=== PATIENT | female | born 1940 | race Caucasian/White ===

== ENCOUNTER 2017-03-16 13:54 | Inpatient (IN) | payer OTHER, MEDICARE ==
[2017-03-16 15:37] LABS: #Lymphocytes 0.5 thou/uL (1.20-3.40); #Monocytes 0.6 thou/uL (0.11-0.59); #Neutrophils 6.1 thou/uL (1.40-6.50); %Basophils 0.3 % (0.0-1.0); %Eosinophils 0.6 % (0.0-10.0); %Lymphocytes 7.4 % (21.0-51.0); %Monocytes 7.6 % (0.0-10.0); Hematocrit 36.2 % (36.0-47.0); Mean Platelet Volume 6.9 fL (7.4-10.4); Red Blood Cell (RBC) Count 3.57 mill/uL (4.20-5.40); White Blood Cell (WBC) Count 7.3 thou/uL (4.8-10.8)
[2017-03-16 15:44] LABS: PTT 25.1 SEC (22.9-36.1); Prothrombin Time 14.5 SEC (12.0-14.7)
[2017-03-16 15:53] LABS: Lactic Acid - Sepsis 1.1 mmol/L (0.5-2.2)
--- NOTE | 2017-03-16 15:54 | CT ---
HEAD CT WITHOUT CONTRAST 03/16/17 COMPARISON: None. HISTORY: Weakness, nausea, and vomiting. TECHNIQUE: Serial axial CT imaging is obtained at 5 mm intervals from vertex through skull base without contrast . FINDINGS: The imaged paranasal sinuses and mastoid air cells are well aerated. There is no displaced calvarial fracture. No intracranial hemorrhage, midline shift mass effect or ve ntricular enlargement. IMPRESSION: No acute findings. POS: [facility]
[2017-03-16 15:58] LABS: ALT (SGPT) 33 U/L (8-55); AST (SGOT) 34 U/L (5-34); Alkaline Phosphatase 49 U/L (40-150); Anion Gap 22 mmol/L (10-20); Bilirubin, Total 0.6 mg/dL (0.2-1.2); CK (CPK) 442 U/L (29-168); Calc. Creatinine Clearance 0 mL/min (70-130); Calcium 8.4 mg/dL (7.8-10.44); Carbon Dioxide 25 mmol/L (23-31); Chloride 95 mmol/L (98-107); Estimated GFR-MDRD 9; Globulin 3.5 g/dL (2.4-3.5); Magnesium 2.1 mg/dL (1.6-2.6); Phosphorus 5.6 mg/dL (2.3-4.7); Protein, Total 6.8 g/dL (6.0-8.3)
[2017-03-16 16:03] LABS: Troponin I 0.145 ng/mL (< 0.028)
[2017-03-16 16:10] LABS: BUN (Urea Nitrogen) 147 mg/dL (9.8-20.1)
[2017-03-16] MEDS ORDERED: Potassium Chloride 20 MEQ in Premix Bag 1 BAG IVPB SCH (16:30)
[2017-03-16] MEDS ORDERED: Potassium Chloride 20 MEQ TAB ONE (16:41)
[2017-03-16] MEDS ORDERED: Potassium Chloride 20 MEQ/100 ML PREMIX BAG ONE ×2 (18:19→18:33)
[2017-03-16 19:00] LABS: Troponin I 0.158 ng/mL (< 0.028)
[2017-03-16] MEDS ORDERED: Diabetic Tussin 200 MG/10 ML UDCUP PO PRN (19:35)
[2017-03-16] MEDS ORDERED: Benzonatate 100 MG CAP PO PRN (19:35)
[2017-03-16] MEDS ORDERED: Bisacodyl 5 MG TAB PO PRN (19:35)
[2017-03-16] MEDS ORDERED: Nitroglycerin 0.4 MG TAB (25 Tab Bottle) SL PRN (19:35)
[2017-03-16] MEDS ORDERED: cloNIDine 0.1 MG TAB PO PRN (19:35)
[2017-03-16] MEDS ORDERED: Mag-Al 1200 mg/1200 mg/30 ML UDCUP PO PRN (19:35)
[2017-03-16] MEDS ORDERED: Senokot 8.6 MG TAB PO PRN (19:35)
[2017-03-16] MEDS ORDERED: Lorazepam 1 MG TAB PO PRN (19:35)
[2017-03-16] MEDS ORDERED: HYDROcodone/Acetaminophen 5/325 mg Tablet PO PRN (19:35)
[2017-03-16] MEDS ORDERED: Acetaminophen 325 MG TAB PO PRN (19:35)
[2017-03-16] MEDS ORDERED: Loratadine 10 MG TAB PO PRN (19:35)
[2017-03-16] MEDS ORDERED: hydrALAZINE 20 MG/ML VIAL SLOW IVP PRN (19:35)
[2017-03-16] MEDS ORDERED: Ondansetron HCl/PF 4 MG/2 ML Vial IVP PRN (19:35)
[2017-03-16] MEDS ORDERED: Calcium Carbonate 500 MG ChewTAB PO PRN (19:35)
[2017-03-16] MEDS ORDERED: traMADol HCl 50 MG TAB PO PRN (19:35)
[2017-03-16 21:07] LABS: Bilirubin Negative (Negative); Blood, Urine Small (Negative); Glucose, Urine (Dipstick) Negative (Negative); Ketone, Urine Negative (Negative); Nitrite Negative (Negative); Protein, Urine (Dipstick) Negative (Neg-Trace); Urobilinogen 0.2 mg/dL (0.2-1.0)
[2017-03-16 21:09] LABS: Bacteria/HPF 4+ HPF (None Seen); Hyaline Casts/LPF 0-3 HYALINE CAST LPF (0-3 Hyaline); Squamous Epithelial None Seen HPF (0-3)
[2017-03-16] MEDS: 1/2 NS w/KCL 20 mEq 1,000 ML IV SCH (21:54)
[2017-03-16] MEDS: Metoprolol Tartrate 25 MG TAB PO SCH (21:59)
--- NOTE | 2017-03-16 22:07 | CT ---
CT ABDOMEN AND PELVIS WITHOUT IV CONTRAST: 03/16/17 Multiple axial tomograms obtained through the abdomen and pelvis without IV enhancement. HISTORY: Renal failure. Transferred from [facility] for weakness, nausea and vomiting. Lung bases are clear. There are calcified granuloma in both lung bases. The liver, spleen, and pancreas appear unremarkable. There is a small 1 cm low density focus in the r ight lobe of the liver probably representing a tiny hepatic cyst. The gallbladder is mildly distended and there is some heterogeneity within the gallbladder. Cholesterol gallstones cannot be excluded by CT and recommend consideration for gallbladder ultrasound. No biliary duct dilatation identified. There is mild left adrenal hyperplasia. There is a 2.8 cm cystic lesion arising from the inferior pole left kidney. No hydronephrosis. The ur eters are normal caliber. Small bowel loops appear normal caliber. Diverticulosis of the left colon and sigmoid. The urinary bl adder unremarkable. The uterus and adnexa unremarkable. Aorta normal caliber with atherosclerotic elva cification. There is an anterior abdominal wall hernia at the umbilicus with mesenteric fat herniated into the rodriguez bcutaneous tissues. Hernia sac measures approximately 4.5 cm width. IMPRESSION: 1. Mild distention of the gallbladder with some heterogeneity of the neck of the gallbladder. Co nsider gallbladder ultrasound. 2. Cystic lesion from the inferior pole of the left kidney. 3. Anterior abdominal wall hernia at the umbilicus. 4. Diverticulosis. 5. No evidence of acute process. 6. Evidence of small hepatic cyst. POS: [facility]
[2017-03-16 22:27] VITALS: BMI 42.5
--- NOTE | 2017-03-16 22:27 | ULT ---
RENAL ULTRASOUND 03/16/17 CLINICAL HISTORY: Renal failure. FINDINGS: Symmetric renal lengths are seen bilaterally between 10 and 11 cm. There is no overt hydronephrosis. There is an approximately 2.5 cm cyst of the left kidney. Punctate area of increased echogenicity in the right kidney is present which may relate to nephrolithiasis versus vascular calcification. Urinar y bladder is grossly unremarkable. IMPRESSION: 1. No overt hydronephrosis. 2. Left renal cyst. 3. Punctate focus of increased echogenicity of the right kidney as above. POS: [facility]
[2017-03-16 22:39] LABS: Troponin I 0.142 ng/mL (< 0.028)
[2017-03-16] MEDS ORDERED: Potassium Chloride 40 MEQ in Sodium Chloride 0.9% 500 ML IVPB SCH (23:59)
--- NOTE | 2017-03-17 01:19 | HP ---
DATE OF ADMISSION: 03/16/2017 PRIMARY CARE PHYSICIAN: Tang Corley D.O. PRIMARY STRATEGY LEAD: Nick Trevino M.D. CHIEF COMPLAINT: Not feeling well, nausea and some loose stools. HISTORY OF PRESENT ILLNESS: Ms. Alvarado is a very pleasant 76-year-old female with past medical histo ry of chronic atrial fibrillation on chronic anticoagulation, Crohn's disease and hypertension who pr esented to the emergency room in [place] with the above-mentioned complaints. History is mainly obt ained by the patient herself and supplemented by her daughter present in the room. Electronic medica l records have been reviewed. According to Ms. Alvarado, she presented to [place] [facility] for not feeling well. Her daughter reports that her symptoms have been ongoing for about a week and a half. She has been feeling nause ous with poor oral intake. She denies any abdominal pain or gross vomiting, but has had some loose s tools. She reports discussing it with her primary care physician and was told that she has some stom ach bug. She is currently having some improvement in her diarrheal symptoms, but continues to feel w eak and presented to the ER today. In the emergency room upon presentation, she was found to be hypotensive with blood pressure of 83/41 and tachycardic with heart rate of 111. She has gross abnormalities on her blood work including acu te kidney injury with creatinine of 4.88 with BUN of 147 with estimated GFR of 9. Her baseline creat inine up until last year was within normal limits. Her potassium was found to be down at 2.3 and her troponin was elevated at 0.145 with CK-MB of 10.1. She has 84% neutrophils on her CBC. EKG showed atrial fibrillation with RVR with some ST depression in lead II, lead III, and AVF. Chest x-ray was unremarkable. She received potassium chloride along with aspirin and normal saline and was transferr ed to our facility for hypokalemia, hypotension, acute non-ST elevation RI and acute renal failure. In the emergency room here she has received more potassium IV and is now being admitted for acute mahi al insufficiency. The patient denies any recent illnesses other than "stomach bug." She denies any chest pain, shortne ss of breath. She denies any sore throat, rhinorrhea, or headache. She denies urinary frequency, he sitancy, or dysuria. She denies any hematochezia or melena. PAST MEDICAL HISTORY: 1. Crohn's disease. 2. Chronic atrial fibrillation. 3. Hypothyroidism. 4. Hypertension. 5. Chronic anticoagulation. PAST SURGICAL HISTORY: Include, 1. Back nerve ablation. 2. Knee surgery on the right. 3. Cataract surgery. 4. Skin cancer removal back of the right calf. SOCIAL HISTORY: She lives alone with her dog Austyn. No history of drug, tobacco or alcohol abuse. PSYCHIATRIC HISTORY: No anxiety, no depression. FAMILY HISTORY: Significant for she denies any premature coronary artery disease or stroke running i n her family. ALLERGIES: No known medication allergies. CURRENT MEDICATIONS: Lisinopril 40 mg daily, torsemide 200 mg daily, azathioprine 50 mg 3 tablets da roger, tizanidine 2 mg 1 tablet every 12 hours as needed, potassium chloride 10 mEq 1 to 2 times a day, [place] 4 times a day as needed, levothyroxine 50 mcg daily, Xarelto 20 mg daily, metoprolol tartrate 25 mg 2 tablets once a day, duloxetine 60 mg daily, oxybutynin 10 mg daily, metolazone 10 mg 3 times a week, multivitamin unknown dose, vitamin C 500 mg daily, glucosamine 1500 mg daily, Vitamin D3 1000 units daily, vitamin E 1000 units daily, and Vision Formula daily. REVIEW OF SYSTEMS: The following complete review of systems was negative, unless otherwise mentioned in the HPI or below: Constitutional: Weight loss or gain, ability to conduct usual activities. Skin: Rash, itching. Eyes: Double vision, pain. ENT/Mouth: Nose bleeding, neck stiffness, pain, tenderness. Cardiovascular: Palpitations, dyspnea on exertion, orthopnea. Respiratory: Shortness of breath, wheezing, cough, hemoptysis, fever or night sweats. Gastrointestinal: Poor appetite, abdominal pain, heartburn, nausea, vomiting, constipation, or diarr hea. Genitourinary: Urgency, frequency, dysuria, nocturia. Musculoskeletal: Pain, swelling. Neurologic/Psychiatric: Anxiety, depression. Allergy/Immunologic: Skin rash, bleeding tendency. It is negative except for those mentioned in the history and physical. PHYSICAL EXAMINATION: VITAL SIGNS: Upon presentation to [facility] ER include blood pressure 110/37, pulse of 89, respir ations 16, saturating 100% on room air, temperature 97.7. GENERAL: She appears age appropriate and in no acute distress. She does appear somewhat tired, but is awake, alert, and oriented. HEENT: Mucous membrane is dry. No oropharyngeal exudate or erythema. Head is normocephalic, atraum atic. Pupils equal, reactive to light and accommodation. Extraocular movements intact. NECK: Supple without any lymphadenopathy, JVD or bruit. CHEST: Clear to auscultation without any wheezing, rales or rhonchi. CARDIOVASCULAR: Rate and rhythm is regular without any murmur, rubs or gallops. ABDOMEN: Soft, nontender, and nondistended. No CVA tenderness. No guarding, rebound or rigidity. EXTREMITIES: Show pitting edema bilaterally with chronic venostasis changes in both lower extremitie s. PSYCHIATRIC: Normal affect. The patient does appear somewhat forgetful. NEUROLOGIC: Nonfocal. SKIN: Free of any rashes or bruises, feel warm and dry to touch. LABORATORY DATA: Laboratory examination has done in the [place] [facility] include WBC 8.4, hem oglobin 13.3, neutrophils 89%, platelet count of 170. Serum chemistries: Potassium 2.2 upon present ation, sodium 140, chloride 89, bicarbonate 25, BUN 157, creatinine 5.87 with repeat creatinine of 4. 88. Lactic acid 1.1, phosphorus 5.6, magnesium 2.1. Liver enzymes within normal limits. Creatinine kinase 442, CK-MB 10.1 with troponin of 0.145. BNP is 218. CT scan of the brain was done in the ER and per my review does not show any hemorrhage, mass effect. Chest x-ray by my review has no eviden ce to suggest pleural effusion, pulmonary edema or infiltrates. A 12 lead EKG by my review shows atr ial fibrillation with controlled ventricular response at 80 with frequent PVCs. IMPRESSION AND PLAN: 1. Acute kidney insufficiency. This seems to be in the setting of developing chronic kidney insuffi ciency. The patient seems to have developed some chronic kidney disease as of December of this year . Nevertheless, it can be either due to dehydration or acute tubular necrosis in the setting of use of LUCIE inhibitor, diuretics and recent diarrheal illness. The patient will be resuscitated with IV f luids with potassium. We will continue to monitor her kidney function and electrolytes closely. We will consult Nephrology for further evaluation. Also check a urinalysis to assess for proteinuria, a nd any evidence of urinary tract infection. We will hold all the nephrotoxic medications include the lisinopril and diuretics for now. We will dose adjust her Imuran and Xarelto for now. 2. Hypotension/hypovolemic shock. This is likely secondary to dehydration due to ongoing diarrhea a nd poor p.o. intake due to nausea. Her blood pressure is much improved with IV fluid resuscitation. Sepsis is not suspected at this point. Most likely this is hypovolemic shock. We will continue to treat her with IV fluids and hold her diuretics. We will continue the beta hilary for her atrial fi brillation with parameters to hold for systolic blood pressure less than 120. 3. Atrial fibrillation now with rapid ventricular response. Unfortunately, this is likely secondary to dehydration. We will resume her beta hilary and Xarelto at this point with close monitoring of her blood pressure. If her blood pressure cannot sustain beta hilary or calcium channel hilary, sh e might need to be either started on digoxin or amiodarone. We will consult Cardiology for this reas on as well as possible non-ST elevation myocardial infarction and obtain a transthoracic echocardiogr am. The patient is asymptomatic with regards to her fast heart rate at this time. 4. Non-ST elevation myocardial infarction, this is most likely the demand ischemia from severe dehyd ration and septic shock. We will continue her home medication of Xarelto and beta hilary and obtain a transthoracic echocardiogram and Cardiology consultation. Continue to trend serial cardiac enzyme s. The patient has received aspirin in the [place] [facility] and we will hold off on anymore a spirin until Cardiology has seen her in the light of acute renal insufficiency. 5. Severe hypokalemia. This is secondary to poor p.o. intake and ongoing use of diuretics. The nely ielashell has received a total of 80 mEq of potassium in the ER. We will check a stat potassium level and continue to add potassium and IV fluids. It will be monitored closely and replaced as needed. 6. Elevated BNP. It is unclear significance, likely secondary to renal failure. The patient has no history of congestive heart failure neither any symptoms at this time. We will be judicious with th e use of IV fluids. She does have lower extremity edema which seems to be more chronic rather than a cute heart failure. 7. Hypothyroidism. Resume her levothyroxine. 8. History of Crohn's disease. We will resume azathioprine with dose adjustment for renal failure. 9. Hypertension. We will hold the lisinopril for now given acute renal insufficiency and continue m etoprolol with parameters. Metoprolol dose needs to be confirmed. 10. Deep venous thrombosis and gastrointestinal prophylaxis. The patient will be continued on Xarel to and we will add Pepcid IV b.i.d. given recent gastrointestinal illness for gastrointestinal prophy laxis. 11. Code status: FULL CODE, discussed with the patient and her daughter present in the room. 12. Add p.r.n. medication orders and symptomatic and supportive care. DISPOSITION: The patient is currently being admitted for severe renal insufficiency, hypokalemia and septic shock. ESTIMATED LENGTH OF STAY: At least 2 to 3 midnight. Further management will depend upon her clinica l course.
[2017-03-17 05:10] LABS: #Eosinphils 0.1 thou/uL (0.0-0.7); #Lymphocytes 0.6 thou/uL (1.20-3.40); #Monocytes 0.7 thou/uL (0.11-0.59); #Neutrophils 4.5 thou/uL (1.40-6.50); %Basophils 0.5 % (0.0-1.0); %Eosinophils 1.5 % (0.0-10.0); %Monocytes 11.3 % (0.0-10.0); Mean Platelet Volume 7.5 fL (7.4-10.4); Red Blood Cell (RBC) Count 3.93 mill/uL (4.20-5.40); White Blood Cell (WBC) Count 5.9 thou/uL (4.8-10.8)
[2017-03-17] MEDS: Levothyroxine Sodium 50 MCG TAB PO SCH (05:30)
[2017-03-17] MEDS: 1/2 NS w/KCL 20 mEq 1,000 ML IV SCH ×2 (05:30→16:35)
--- NOTE | 2017-03-17 05:52 | CON ---
DATE OF CONSULTATION: 03/16/2017 NEPHROLOGY CONSULTATION REASON FOR CONSULTATION: Elevated creatinine. HISTORY OF PRESENT ILLNESS: This is a 76-year-old female with baseline creatinine of less than 1 a c ouple of years ago, which increased to 1.7 in December 2016 and increased to 4.8 today and I was con sulted. The patient has had a 1 week history of nausea, vomiting, and poor p.o. intake. The patient has had some diarrhea on and off. The patient's creatinine was earlier 5.8 and has decreased down t o 4.8. The patient denies abdominal pain, nausea, or chest pain. PAST MEDICAL HISTORY: Significant for hypertension, arrhythmia, atrial fibrillation, ablation, knee surgery, varicose vein surgery, and history of Crohn's disease. SOCIAL HISTORY: No alcohol or drug use. FAMILY HISTORY: Negative for ESRD. ALLERGIES: Reviewed. HOME MEDICATIONS: List reviewed. REVIEW OF SYSTEMS: Fifteen-point review of systems was performed and negative except positives noted above. GENERAL: Weakness. HEAD: Headache. NECK: No swelling or lumps. NOSE: No epistaxis or discharge. EYES: No diplopia or pain. RESPIRATORY: Dyspnea. CARDIOVASCULAR: Chest pain. GASTROINTESTINAL: Nausea. /EMPLOYEE BENEFITS DIRECTOR: Hematuria. MUSCULOSKELETAL: No joint pain. NEUROPSYCHIATIC SYSTEMS: No suicidal ideation. No ideation. SKIN: Denies any rash or ulcer CONSTITUTIONAL: No fever or chills. PHYSICAL EXAMINATION: GENERAL: Patient is awake, alert. VITAL SIGNS: Afebrile, pulse 75, breathing 16, blood pressure 150/70. HEAD/NECK: Normocephalic. Atraumatic. EYES: EOMI. No deformity. EARS: Clear. No ulcers. NOSE: Intact. No lesions. MOUTH: Clear. No discharge. THROAT: Clear. No exudate. LUNGS: Clear. No crackles. CARDIAC: S1, S2. No rub. ABDOMEN: Benign. BS+. GENITALIA/RECTUM: Burns absent. BACK/EXTREMITIES: Edema 0+ Ulcer-. NEUROLOGICAL: Alert and motor intact. SKIN: Rash- Bruise-. LYMPHATICS: Edema- Ulcer-. LABORATORY: Potassium 2.3, creatinine 4.8. ASSESSMENT AND RECOMMENDATIONS: 1. Acute kidney injury with chronic kidney disease, most likely due to LUCIE medication as well as his tory of chronic kidney disease. I would recommend gentle hydration. 2. Hypokalemia. Would recommend 40 mEq of potassium replacement and recheck potassium every 3-4 sole rs. 3. Anemia, stable. 4. Medications based on glomerular filtration rate are appropriate. No indication for dialysis at t his time. I will follow the patient's renal function closely. I will order renal imaging with histo ry of renal cyst.
[2017-03-17 06:37] LABS: BUN (Urea Nitrogen) 134 mg/dL (9.8-20.1)
[2017-03-17 07:38] LABS: Anion Gap 20 mmol/L (10-20); Calc. Creatinine Clearance 31 mL/min (70-130); Calcium 8.5 mg/dL (7.8-10.44); Carbon Dioxide 20 mmol/L (23-31); Chloride 102 mmol/L (98-107); Estimated GFR-MDRD 17; Phosphorus 3.8 mg/dL (2.3-4.7)
[2017-03-17] MEDS ORDERED: Rivaroxaban 15 MG TAB PO SCH (09:00)
[2017-03-17] MEDS ORDERED: Famotidine/PF 20 mg/2ml Vial SLOW IVP SCH (09:00)
--- NOTE | 2017-03-17 09:01 | PRG ---
DATE OF SERVICE: 03/17/2017 SUBJECTIVE: This is a 76-year-old female being seen for acute kidney injury. The patient denies any nausea, vomiting or chest pain. PHYSICAL EXAMINATION: GENERAL: Patient is awake, alert. VITAL SIGNS: Afebrile, pulse 90, breathing 16, blood pressure 117/59. OBJECTIVE: See above. Awake, alert, in no acute distress. GENERAL APPEARANCE AND MENTAL STATUS: Fair. HEAD/NECK: Normocephalic. Atraumatic. EYES: EOMI. No deformity. EARS: Clear. No ulcers. NOSE: Intact. No lesions. MOUTH: Clear. No discharge. THROAT: Clear. No exudate. LUNGS: Clear. No crackles. CARDIAC: S1, S2. No rub. ABDOMEN: Benign. BS+. GENITALIA/RECTUM: Burns absent. BACK/EXTREMITIES: Edema 0+ Ulcer- NEUROLOGICAL: Alert and motor intact. SKIN: Rash- Bruise- LYMPHATICS: Edema- Ulcer- LABORATORY: Hemoglobin 13.2, creatinine is 2.7. ASSESSMENT AND RECOMMENDATIONS: 1. Acute kidney injury, improved. 2. Chronic kidney disease stage 4, stable. 3. Hypokalemia, improved. 4. Uremia, improving. Continue hydration. No indication for dialysis at this time.
[2017-03-17] MEDS: azaTHIOprine 50 MG TAB PO SCH (09:17)
[2017-03-17] MEDS: Metoprolol Tartrate 25 MG TAB PO SCH ×2 (09:17→21:01)
--- NOTE | 2017-03-17 09:58 | CON ---
DATE OF CONSULTATION: 03/17/2017 REASON FOR CONSULTATION: Atrial fibrillation, renal insufficiency. HISTORY OF PRESENT ILLNESS: Ms. Alvarado is a very pleasant 76-year-old woman who I have seen and eval uated in the past. She has a history of fibrillation on anticoagulation therapy. She recently prese nted with fatigue, weakness, and was found to have acute kidney injury likely from diuretic use. No current complaints of heart fluttering, palpitations or other associated symptoms. She is currently on Xarelto. PAST MEDICAL AND SURGICAL HISTORY: Venous insufficiency, knee surgery, hypertension. ALLERGIES: None. SOCIAL HISTORY: No current tobacco or alcohol use. CURRENT MEDICATIONS: Include glucosamine, levothyroxine, hydrocodone, oxybutynin, metolazone, tizani dine, multivitamin, potassium, lisinopril, torsemide, Xarelto and metoprolol. REVIEW OF SYSTEMS: Ten-point review of systems is reviewed and as above, otherwise negative. PHYSICAL EXAMINATION: GENERAL: Patient is a pleasant female who is in no acute distress. The patient appears her stated a ge. VITAL SIGNS: Blood pressure 117/59, pulse 90, temperature 97.6. NEUROLOGIC: The patient is alert and oriented times 3 with no focal neurologic deficits. HEENT: Sclerae without icterus. Mouth has moist mucous membranes with normal pallor. NECK: No JVD. Carotid upstroke brisk. No bruits bilaterally. LUNGS: Clear to auscultation with unlabored respirations. BACK: No scoliosis or kyphosis. CARDIAC: Irregularly irregular. ABDOMEN: Soft, nontender, nondistended. No peritoneal signs present. No hepatosplenomegaly. No ab normal striae. EXTREMITIES: 2+ femoral and 2+ dorsalis pedis pulses. No cyanosis, clubbing, or edema. SKIN: No gross abnormalities. PERTINENT LABORATORY DATA: Hemoglobin 13.2, creatinine 2.75, potassium 2.6. Admitting creatinine of 4.8. IMPRESSION: 1. Acute kidney injury. 2. Mildly elevated troponin of 0.1. 3. Atrial fibrillation. RECOMMENDATIONS: Her elevated troponin likely related to demand ischemia versus acute kidney injury. She is currently asymptomatic. Last stress test in the office dated 04/22/2015 was felt to be norm al with LVEF 58%. Last echo dated 02/18/2017 with LVEF 50%-55% with mild MR and mild TR. At this po int, we will recommend conservative therapy. We will change her Xarelto to Eliquis given renal funct ion. Otherwise, I have no further recommendations.
--- NOTE | 2017-03-17 13:32 | PDOC.PN ---
- Subjective Encounter Start Date: 03/17/17 Encounter Start Time: 13:32 Patient seen and examined. No new complaints. No overnight events. Feels better. No CP/SOB - Objective Resuscitation Status: Resuscitation Status FULL:Full Resuscitation MAR Reviewed: Yes Vital Signs & Weight: Vital Signs (12 hours) Temp Pulse Resp BP Pulse Ox 03/17/17 10:35 97.5 F L 74 12 125/57 L 95 03/17/17 07:44 97.6 F 90 20 99 03/17/17 07:33 97.6 F 90 20 117/59 L 99 03/17/17 04:00 97.6 F 91 16 99/52 L 97 Weight Weight 254 lb 12.8 oz I&O: 03/16/17 03/17/17 03/18/17 06:59 06:59 06:59 Intake Total 1340 120 Output Total 1800 Balance -460 120 Result Diagrams: 03/17/17 04:19 03/17/17 04:19 Radiology Reviewed by me: Yes (CT abd - abn gall bladder) EKG Reviewed by me: Yes (Tele AFib) Phys Exam - Physical Examination Constitutional: NAD Respiratory: no wheezing, no rales, no rhonchi, clear to auscultation bilateral Cardiovascular: no rub, irregular no heaves, 2/6 SM at T area Gastrointestinal: soft, non-tender, no distention, positive bowel sounds Musculoskeletal: edema present (1 +) Neurological: non-focal, normal sensation, moves all 4 limbs Psychiatric: normal affect, A&O x 3 Dx/Plan - Plan PT/OT, out of bed/ambulate, DVT proph w/SCDs IMPRESSION: 1. MINE/Dehydration/Hypotension/hypovolemia - multifactorial 2. Hypokalemia 3. Abn troponins 4. Morbid obesity BMI 42.4 5. Chronic Afib 6. h/o HTN 7. Crohn's disease 8. Elevated CK 9. Abn gall bladder on CT 10. L Renal cyst 11. Diverticulosis PLAN: * Cont IV fluids with potassium * Cardiology/Nephrology following * Cont low dose Metoprolol * AM labs * Gall bladder ultrasound due to abn CT * Cont other meds as below * DC Xarelto due to abn renal function (I confirmed with Cardiology) - Will probably switch to Eliquis * Lisinopril/Torsemide/Metolazone on hold due to MINE Review of Systems - Review of Systems Respiratory: negative: Cough, Dry, Shortness of Breath, Hemoptysis, SOB with Excertion, Pleuritic Pain, Sputum, Wheezing Cardiovascular: negative: Chest Pain, Palpitations, Orthopnea, Paroxysmal Noc. Dyspnea, Edema, Light Headedness - Medications/Allergies Allergies/Adverse Reactions: Allergies Allergy/AdvReac Type Severity Reaction Status Date / Time No Known Allergies Allergy Verified 02/25/13 13:33 Medications: Current Medications Acetaminophen (Tylenol) 650 mg PO Q4H PRN PRN Reason: Headache/Fever or Pain Hydrocodone Bitart/Acetaminophen ([place] 5/325) 1 tab PO Q4H PRN PRN Reason: Moderate Pain (4-6) Al Hydroxide/Mg Hydroxide (Maalox) 30 ml PO Q6H PRN PRN Reason: Heartburn or Indigestion Azathioprine (Imuran) 75 mg PO DAILY [facility] Last Admin: 03/17/17 09:17 Dose: 75 mg Benzonatate (Tessalon) 100 mg PO Q4H PRN PRN Reason: Cough Bisacodyl (Dulcolax) 10 mg PO DAILYPRN PRN PRN Reason: Constipation Calcium Carbonate (Tums) 1,000 mg PO Q4H PRN PRN Reason: Heartburn or Indigestion Clonidine (Catapres) 0.1 mg PO Q4H PRN PRN Reason: Systolic BP > 160 Duloxetine HCl (Cymbalta) 60 mg PO DAILY [facility] Last Admin: 03/17/17 09:17 Dose: 60 mg Famotidine (Pepcid) 20 mg SLOW IVP QAM [facility] Last Admin: 03/17/17 09:22 Dose: 20 mg Guaifenesin (Robitussin Sf) 200 mg PO Q4H PRN PRN Reason: Cough Hydralazine HCl (Apresoline) 10 mg SLOW IVP Q4H PRN PRN Reason: Systolic BP > 170 Potassium Chloride/Sodium Chloride (1/2 Ns W/Kcl 20 Meq) 1,000 mls @ 100 mls/ hr IV .Q10H [facility] Last Admin: 03/17/17 05:30 Dose: 1,000 mls Levothyroxine Sodium (Synthroid) 50 mcg PO 0600 [facility] Last Admin: 03/17/17 05:30 Dose: 50 mcg Loratadine (Claritin) 10 mg PO DAILYPRN PRN PRN Reason: Sinus Symptoms Lorazepam (Ativan) 1 mg PO Q4H PRN PRN Reason: Anxiety/Agitation Metoprolol Tartrate (Lopressor) 12.5 mg PO BID [facility] Last Admin: 03/17/17 09:17 Dose: 12.5 mg Nitroglycerin (Nitrostat) 0.4 mg SL Q5MIN PRN PRN Reason: Chest Pain Ondansetron HCl (Zofran) 4 mg IVP Q6H PRN PRN Reason: Nausea/Vomiting Senna (Senokot) 2 tab PO HSPRN PRN PRN Reason: Constipation Sodium Chloride (Flush - Normal Saline) 10 ml IVF Q12HR [facility] Last Admin: 03/17/17 09:19 Dose: Not Given Sodium Chloride (Flush - Normal Saline) 10 ml IVF PRN PRN PRN Reason: Saline Flush Tramadol HCl (Ultram) 50 mg PO Q4H PRN PRN Reason: Moderate Pain (4-6)
[2017-03-18] MEDS: 1/2 NS w/KCL 20 mEq 1,000 ML IV SCH (02:59)
[2017-03-18] MEDS: Levothyroxine Sodium 50 MCG TAB PO SCH (05:44)
[2017-03-18 06:04] LABS: Anion Gap 16 mmol/L (10-20); BUN (Urea Nitrogen) 103 mg/dL (9.8-20.1); Calc. Creatinine Clearance 68 mL/min (70-130); Calcium 8.7 mg/dL (7.8-10.44); Carbon Dioxide 27 mmol/L (23-31); Chloride 103 mmol/L (98-107); Estimated GFR-MDRD 41; Magnesium 1.6 mg/dL (1.6-2.6)
[2017-03-18] MEDS ORDERED: Potassium Chloride 20 MEQ TAB PO SCH ×2 (06:15→08:00)
[2017-03-18] MEDS ORDERED: Magnesium Sulfate 2 GM in Sodium Chloride 0.9% 100 ML IVPB SCH (07:30)
[2017-03-18] MEDS: Metoprolol Tartrate 25 MG TAB PO SCH (08:47)
[2017-03-18] MEDS: azaTHIOprine 50 MG TAB PO SCH (08:47)
--- NOTE | 2017-03-18 10:56 | ULT ---
RIGHT UPPER QUADRANT ULTRASOUND: Date: 03/18/17 HISTORY: Nausea, vomiting, and diarrhea. FINDINGS: There are multiple echogenic foci with posterior shadowing seen in the gallbladder in the region of t he gallbladder neck compatible with multiple gallbladder calculi. There is no pericholecystic fluid o r gallbladder wall thickening. Gallbladder is mildly distended. The common duct is normal in caliber measuring 0.3 cm in diameter. The liver demonstrates a normal sonographic appearance. The hypodense lesion seen in the right hepati c lobe on CT exam on 03/16/17 is not appreciated on this exam. The visualized portions of the pancreas, visualized portions of the IVC, and right kidney demonstrate a normal sonographic appearance. The right kidney measures 10.7 cm in length. IMPRESSION: 1. Cholelithiasis. 2. Common duct is normal in caliber. POS: [facility]
--- NOTE | 2017-03-18 12:36 | PRG ---
DATE OF SERVICE: 03/18/2017 SUBJECTIVE: This is a 76-year-old female being seen for acute kidney injury. The patient denies any nausea, vomiting or chest pain. PHYSICAL EXAMINATION: GENERAL: Patient is awake, alert. VITAL SIGNS: Afebrile, pulse 95, breathing at 16, blood pressure 121/59. HEAD/NECK: Normocephalic. Atraumatic. EYES: EOMI. No deformity. EARS: Clear. No ulcers. NOSE: Intact. No lesions. MOUTH: Clear. No discharge. THROAT: Clear. No exudate. LUNGS: Clear. No crackles. CARDIAC: S1, S2. No rub. ABDOMEN: Benign. BS+. GENITALIA/RECTUM: Burns absent. BACK/EXTREMITIES: Edema 0+ Ulcer- NEUROLOGICAL: Alert and motor intact. SKIN: Rash- Bruise- LYMPHATICS: Edema- Ulcer- LABORATORY: Hemoglobin 13, creatinine 1.2. ASSESSMENT AND RECOMMENDATIONS 1. Acute kidney injury, improved. 2. Hypokalemia, recommend high potassium diet. 3. Metabolic acidosis, improved. 4. Uremia, improving. No indication for dialysis. Avoid diuretics.
[2017-03-18 13:24] VITALS: BP 117/64; TEMP 98.7
--- NOTE | 2017-03-18 14:19 | DIS ---
DATE OF DISCHARGE: 03/18/2017 DISCHARGE DISPOSITION: Home. FOLLOWUP: Follow up with Dr. Corley in 1 week. Follow up with Dr. Trevino in 1-2 weeks. Follo w up with Dr. Gomez, Nephrology, in 1 week. Repeat base met tomorrow as well as on Wednesday. Results will be faxed to Dr. Corley's office. Sehron cross will follow up with Dr. Corley for the results. ALLERGIES: No known drug allergies. DISCHARGE MEDICATIONS: Vitamin C 500 mg daily, azathioprine 50 mg three times daily, vitamin D3 1000 units daily, Cymbalta 60 mg daily, glucosamine 1500 mg daily, [place] as needed, levothyroxine 50 mcg daily, Lopressor 50 mg daily, multivitamin 1 capsule daily, oxybutynin 10 mg daily, potassium chlorid e 10 mEq daily, Xarelto 20 mg daily, tizanidine 2 mg b.i.d., [id number] vitamins, Macrodantin 1 00 mg b.i.d. for 1 week. INPATIENT CONSULTANTS: 1. Cardiology, Dr. Trevino. 2. Nephrology, Dr. Олег Gomez. The patient was seen and examined on the day of discharge. Denies any new complaints. BRIEF HOSPITAL COURSE: The patient is a 76-year-old female with hypertension, currently on torsemide , metolazone, and lisinopril, presented to the hospital with generalized weakness, nausea as well as some loose stools. Please refer to the history and physical dated 03/16/2017 for further details. The patient was admitted to the hospital with a diagnosis of acute kidney injury. Her creatinine on admission was 4.88 with BUN 147. Her potassium on admission was 2.3. Diuretics were held. She was placed on IV fluids. The patient was seen by Nephrology, Dr. Gomez, as well as Cardiology, Dr. Bambi rey. On the day of discharge, her potassium is 4.0 with creatinine of 1.26 and BUN of 103. Repeat l abs tomorrow, that is 03/19/2017, as well as 03/22/2017 is recommended. She will also require weekly labs for at least 2 or 3 times after this. Lisinopril, torsemide, and metolazone have been disconti nued for now. SIGNIFICANT LABORATORY DATA: Maximum troponin of 0.158. CK was 442 on admission. Anion gap of 22 o n admission and 16 at discharge. CBC showed WBC 7.3 with hemoglobin 12.5. Urinalysis showed greater than 50 wbcs with 4+ bacteria. U rine cultures were not sent. CT scan of the abdomen showed mild distention of the gallbladder. Right upper quadrant ultrasound sh owed multiple gallbladder calculi. FINAL DIAGNOSES: 1. Acute kidney injury. 2. Hypokalemia. 3. Dehydration with hypotension/hypovolemia. 4. Abnormal troponins, probably secondary to #1. 5. Morbid obesity with a BMI of 42.4. 6. Urinary tract infection. 7. Chronic atrial fibrillation. 8. Hypertension. 9. Crohn's disease. 10. Elevated CK. 11. Abnormal gallbladder on the CT. Right upper quadrant ultrasound showed multiple gallstones. 12. Diverticulosis. 13. Left renal cyst. 14. Anion gap metabolic acidosis secondary to renal failure. 15. Chronic anticoagulation. 16. Chronic atrial fibrillation. Plan of care was discussed with the patient and the family at the bedside. They stated understanding . Total time coordinating the discharge of this patient was 35 minutes.
[2017-03-18] MEDS ORDERED: Rivaroxaban 10 MG TAB PO SCH (18:00)
== END 2017-03-18 13:44 | disposition home or self-care (01) | DRG 682 ==
LOC: ERS 13:54 → 2NO 16:34
PROVIDERS: ADMIT Internal Medicine; ATTEND Internal Medicine
DX: N17.9 Acute kidney failure, unspecified (principal); R57.1 Hypovolemic shock; I95.9 Hypotension, unspecified; E87.2 Acidosis; I24.8 Other forms of acute ischemic heart disease; K50.90 Crohn's disease, unspecified, without complications; I48.2 Chronic atrial fibrillation; N39.0 Urinary tract infection, site not specified; Z68.41 Body mass index [BMI] 40.0-44.9, adult; E86.0 Dehydration; N18.4 Chronic kidney disease, stage 4 (severe); Z79.01 Long term (current) use of anticoagulants; E87.6 Hypokalemia; E03.9 Hypothyroidism, unspecified; I12.9 Hypertensive chronic kidney disease with stage 1 through stage 4 chronic kidney disease, or unspecified chronic kidney disease; E66.01 Morbid (severe) obesity due to excess calories; K80.20 Calculus of gallbladder without cholecystitis without obstruction; K57.90 Diverticulosis of intestine, part unspecified, without perforation or abscess without bleeding; D64.9 Anemia, unspecified
CPT/HCPCS: 36415; 70450; 74176; 76705; 76770; 80048; 81003; 81015; 83605; 83735; 83880; 84100; 85025; 93005; 93306; 96361; 96374; A4216; G8978-GP-CL; G8979-GP-CJ; G8987-GO-CJ; G8988-GO-CH; J3475; J3480; J7050; J7500; S0028

== ENCOUNTER 2018-02-27 21:09 | Inpatient (IN) | payer OTHER, MEDICARE ==
[~2018-02-27 21:09] MED LIST: ISOVUE-370 76%-LOCM 1 ML ONE
--- NOTE | 2018-02-27 22:07 | CT ---
CTA CHEST: HISTORY: Chest pain. Elevated D-dimer. TECHNIQUE: A contrast enhanced CTA chest was performed, and 2D and 3D reconstructed images were performed on an independent 3D work station. FINDINGS: No definite evidence of pulmonary parenchymal lesions seen. Some areas of atelectasis seen in the right and left lung bases. The thoracic aorta demonstrates calcifications without evidence of dissection. Coronary artery calcification is seen, especially in the left main coronary artery. No evidence of pericardial effusion is seen. No evidence of filling defects seen in the pulmonary arteries to suggest pulmonary emboli. IMPRESSION: No evidence of pulmonary emboli. POS: [facility]
[2018-02-27 22:08] LABS: #Eosinphils 0.1 thou/uL (0.0-0.7); #Lymphocytes 0.4 thou/uL (1.20-3.40); #Monocytes 1.1 thou/uL (0.11-0.59); #Neutrophils 8.9 thou/uL (1.40-6.50); %Basophils 0.1 % (0.0-1.0); %Eosinophils 0.7 % (0.0-10.0); %Lymphocytes 4.2 % (21.0-51.0); %Monocytes 10.6 % (0.0-10.0); %Neutrophils 84.5 % (42.0-75.0); Mean Corpuscular HGB CONC 33.9 g/dL (32.0-36.0); Mean Corpuscular Hemoglobin 33.9 pg (27.0-31.0); Mean Corpuscular Volume 99.9 fL (78.0-98.0); Mean Platelet Volume 6.9 fL (7.4-10.4); Platelet Count 185 thou/uL (130-400); RBC Distribution Width 14.4 % (11.5-14.5); Red Blood Cell (RBC) Count 2.67 mill/uL (4.20-5.40); White Blood Cell (WBC) Count 10.6 thou/uL (4.8-10.8)
[2018-02-27 22:28] LABS: Lactic Acid 1.3 mmol/L (0.5-2.2)
[2018-02-27 22:35] LABS: CKMB 0.9 ng/mL (0-6.6); Troponin I 0.037 ng/mL (< 0.028)
[2018-02-27 22:41] LABS: ALT (SGPT) 40 U/L (8-55); AST (SGOT) 39 U/L (5-34); Albumin 2.1 g/dL (3.4-4.8); Alkaline Phosphatase 59 U/L (40-150); Anion Gap 10 mmol/L (10-20); BUN (Urea Nitrogen) 54 mg/dL (9.8-20.1); CK (CPK) 124 U/L (29-168); Calc. Creatinine Clearance 0 mL/min (70-130); Calcium 7.5 mg/dL (7.8-10.44); Carbon Dioxide 36 mmol/L (23-31); Chloride 88 mmol/L (98-107); Estimated GFR-MDRD 26; Globulin 2.3 g/dL (2.4-3.5); Glucose 116 mg/dL (83-110); Potassium 3.1 mmol/L (3.5-5.1); Protein, Total 4.4 g/dL (6.0-8.3); Sodium 131 mmol/L (136-145)
--- NOTE | 2018-02-27 23:17 | PDOC.FPRHP ---
- History of Present Illness Chief Complaint: Hypotension History of Present Illness: Patient presents from [facility] for hypotension. Patient reportedly complained of chest pain and was given 2 SL nitro which caused pt to become hypotensive and she was transported to ED. Patient denied CP, SOB, fever, dizziness, change in vision. Has had normal appetite. Has loose stools after receiving a lot of miralax at previous admission. She complains of R sided pain which is chronic for her, phantom R finger pain, leg aches/pains. Pt lived independently, fell last week and was down for 10 hours, admitted to [facility] for Rhabd with ARF which improved. Discharged to [facility] for rehab with goal of gaining strength to be able to return to home independent living. Per daughter, patient has not been able to ambulate or use bedside commode. She has laid in bed. Sat up in chair once today. ED Course: 2L NS - Allergies/Adverse Reactions Allergies Allergy/AdvReac Type Severity Reaction Status Date / Time No Known Allergies Allergy Verified 02/25/13 13:33 - Home Medications Medication Instructions Recorded Confirmed Type Ascorbic Acid [Vitamin C] 500 mg PO DAILY 03/16/17 02/28/18 History Cholecalciferol (Vitamin D3) 2,000 unit PO DAILY 03/16/17 02/28/18 History [Vitamin D] DULoxetine [Cymbalta] 60 mg PO DAILY 03/16/17 02/28/18 History Glucosamine/D3/Boswellia Veronica 1,500 mg PO DAILY 03/16/17 02/28/18 History [Glucosamine Complex] Levothyroxine Sodium 50 mcg PO DAILY 03/16/17 02/28/18 History Metoprolol Tartrate [Lopressor] 25 mg PO BID 03/16/17 02/28/18 History Oxybutynin Chloride [Oxybutynin 10 mg PO DAILY 03/16/17 02/28/18 History Chloride ER] Potassium Chloride 20 meq PO TID 03/16/17 02/28/18 History Rivaroxaban [Xarelto] 15 mg PO DAILY 03/16/17 02/28/18 History Vitamin E 1,000 unit PO DAILY 03/16/17 02/28/18 History azaTHIOprine [Imuran] 50 mg PO BID 03/16/17 02/28/18 History Aspirin [Aspirin Chewable] 81 mg PO DAILY 02/28/18 02/28/18 History Clobetasol [Temovate 0.05% Cream] 1 applic TOP BID 02/28/18 02/28/18 History Famotidine 20 mg PO DAILY 02/28/18 02/28/18 History Vit A,C & E/Lutein/Minerals 1 tab PO DAILY 02/28/18 02/28/18 History [Ocuvite With Lutein] - History PMHx: hypothyroid, metastatic melanoma, HTN, Crohns, spinal stenosis, urinary incontinence PSHx: L knee replacement, b/l cataracts, b/l leg "ablation" by Dr. Trevino for LE circulation, R 3rd finger amputation FHx: non-contributory Social: Presented from [facility] [employer]. Previously lived independently, working before fall. - Review of Systems General: reports: fatigue. denies: fever/chills, weight/appetite/sleep changes Eyes: denies: eye pain, vision changes ENT: denies: nasal congestion, rhinorrhea Respiratory: denies: cough, shortness of breath Cardiovascular: reports: edema. denies: chest pain, palpitation Gastrointestinal: reports: other (loose stool). denies: nausea, vomiting, diarrhea, constipation Genitourinary: reports: incontinence. denies: dysuria Skin: reports: lesions (bruising). denies: rashes Musculoskeletal: reports: pain (back, leg, R hand) Neurological: denies: syncope, seizure - Vital signs BP: 98/52 HR: 86 RR: 100 Pox: 100% on RA Wt: 108 kg - Physical Exam Constitutional: NAD, awake, alert and oriented, well developed (obese) HEENT: normocephalic and atraumatic, PERRLA, EOMI, grossly normal vision, grossly normal hearing, oropharynx clear, other (MM dry) Neck: supple, trachea midline, no LAD, no thyromegaly Heart: RRR, normal S1/S2, no murmurs/rubs/gallops, other (2+ RLE edema) Lungs: CTAB, no respiratory distress Abdomen: soft, non-tender, bowel sounds present, no masses/distention Neurological: no focal deficit Skin: capillary refill <2 seconds, other (R upper arm, R side of neck bandages. Diffuse bruising from fall.) Heme/Lymphatic: no unusual bruising or bleeding FMR H&P: Results - Labs Result Diagrams: 02/27/18 21:52 02/27/18 21:52 Lab results: WBC 10.6 thou/uL (4.8-10.8) 02/27/18 21:52 Hgb 9.0 g/dL (12.0-16.0) L 02/27/18 21:52 Hct 26.7 % (36.0-47.0) L 02/27/18 21:52 MCV 99.9 fL (78.0-98.0) H 02/27/18 21:52 Plt Count 185 thou/uL (130-400) 02/27/18 21:52 Neutrophils % 84.5 % (42.0-75.0) H 02/27/18 21:52 Sodium 131 mmol/L (136-145) L 02/27/18 21:52 Potassium 3.1 mmol/L (3.5-5.1) L 02/27/18 21:52 Chloride 88 mmol/L (98-107) L 02/27/18 21:52 Carbon Dioxide 36 mmol/L (23-31) H 02/27/18 21:52 BUN 54 mg/dL (9.8-20.1) H 02/27/18 21:52 Creatinine 1.87 mg/dL (0.6-1.1) H 02/27/18 21:52 Glucose 116 mg/dL (83-110) H 02/27/18 21:52 Lactic Acid 1.3 mmol/L (0.5-2.2) 02/27/18 21:52 Calcium 7.5 mg/dL (7.8-10.44) L 02/27/18 21:52 Total Bilirubin 1.0 mg/dL (0.2-1.2) 02/27/18 21:52 AST 39 U/L (5-34) H 02/27/18 21:52 ALT 40 U/L (8-55) 02/27/18 21:52 Alkaline Phosphatase 59 U/L (40-150) 02/27/18 21:52 Creatine Kinase 124 U/L (29-168) 02/27/18 21:52 CK-MB (CK-2) 0.9 ng/mL (0-6.6) 02/27/18 21:52 B-Natriuretic Peptide 192.1 pg/mL (0-100) H 02/27/18 21:52 Serum Total Protein 4.4 g/dL (6.0-8.3) L 02/27/18 21:52 Albumin 2.1 g/dL (3.4-4.8) L 02/27/18 21:52 FMR H&P: A/P - Problem List (1) Hypotension Current Visit: Yes Status: Acute (2) Elevated troponin Current Visit: Yes Status: Acute Code(s): R74.8 - ABNORMAL LEVELS OF OTHER SERUM ENZYMES (3) Metabolic alkalosis Current Visit: Yes Status: Acute Code(s): E87.3 - ALKALOSIS (4) Macrocytic anemia Current Visit: Yes Status: Acute Code(s): D53.9 - NUTRITIONAL ANEMIA, UNSPECIFIED (5) CKD (chronic kidney disease) stage 3, GFR 30-59 ml/min Current Visit: Yes Status: Acute Code(s): N18.3 - CHRONIC KIDNEY DISEASE, STAGE 3 (MODERATE) (6) Elevated brain natriuretic peptide (BNP) level Current Visit: Yes Status: Acute Code(s): R79.89 - OTHER SPECIFIED ABNORMAL FINDINGS OF BLOOD CHEMISTRY (7) Hypokalemia Current Visit: Yes Status: Acute Code(s): E87.6 - HYPOKALEMIA (8) Hypomagnesemia Current Visit: Yes Status: Acute Code(s): E83.42 - HYPOMAGNESEMIA (9) Hyponatremia Current Visit: Yes Status: Acute Code(s): E87.1 - HYPO-OSMOLALITY AND HYPONATREMIA (10) Metastatic melanoma Current Visit: Yes Status: Acute Code(s): C79.9 - SECONDARY MALIGNANT NEOPLASM OF UNSPECIFIED SITE (11) Physical deconditioning Current Visit: Yes Status: Acute Code(s): R53.81 - OTHER MALAISE (12) Hypoalbuminemia Current Visit: Yes Status: Acute Code(s): E88.09 - OTH DISORDERS OF PLASMA- PROTEIN METABOLISM, NEC (13) Atrial fibrillation Current Visit: Yes Status: Acute Code(s): I48.91 - UNSPECIFIED ATRIAL FIBRILLATION (14) Incontinence in female Current Visit: Yes Status: Acute Code(s): R32 - UNSPECIFIED URINARY INCONTINENCE (15) Crohns disease Current Visit: Yes Status: Acute Code(s): K50.90 - CROHN'S DISEASE, UNSPECIFIED, WITHOUT COMPLICATIONS (16) Hypothyroid Current Visit: Yes Status: Acute Code(s): E03.9 - HYPOTHYROIDISM, UNSPECIFIED (17) HTN (hypertension) Current Visit: Yes Status: Acute Code(s): I10 - ESSENTIAL (PRIMARY) HYPERTENSION - Plan 77 yo F presents from [facility] with CC of Hypotension likely 2/2 hypovolemia - wors[facility] - s/p 2L in ED. BP 98/52. MAP >65. - MM dry, dehydration and GI loss likely contributory - LR @ 150 for maintenance fluids. May consider decreasing when patient showing adequate PO intake. - WBC normal, but significant left shift. With pt's metastatic melanoma, pt could be immunosuppressed and not mounting white count. Will get UA, Ucx, Bcx to rule out underlying infectious cause for hypotension Elevated troponin - 0.037 - pt denies CP - EKG showed afib, no ST changes - will continue to trend. Do not suspect cardiac etiology at this time. Hyochloremic hypokalemic metabolic acidosis - likely 2/2 GI loss with hx of loose stools Macrocytic anemia, acute - H/H 01/19.7 - HGb 2 days ago was 11. - pending iron studies, B12/folate - patient asymptomatic, no grossly bloody stool - Considering elevated BUN, on xarelto, and rapid Hgb decrease will get FOBT to rule out GI bleed MINE on CKD3 - unsure of how rhabdo last week affected kidney function - patient receiving IVF - monitor BMP Elevated BNP - 192. - 02/2017 BNP was in 200s. - Last echo 02/2017 showed EF 50-55% Hypokalemia - 3.1 - ED ordered 40 meq IV to replace, patient given on floor - pt on K+ supplement and diuretics at home - AM labs to recheck Hypomagnesemia - 1.3 - will replace with 2g Hyponatremia, mild - 131 - will monitor on BMP Metastatic Melanoma - s/p R 3rd finger amputation (primary site) with mets to spine - has received some palliate radiation to spine, with plan to possibly try new medication or kyphoplasty in future. - Dr. Esparza oncologist. Dr. Main is palliative care. At [facility]. - After last hospitalization, switched to fentanyl patches for pain. - Unknown prn for breaththrough pain. Will get medication information from [facility] in am. Deconditioning - patient transferred from rehab - 1-2 wks ago lived independently, worked - pt reportedly unable to ambulate. Only sits in chair at times - PT/OT consult Hypoalbuminemia Atrial fibrillation - on xarelto at home, will continue - Dr. Trevino is admissions clinician Urinary incontinence - on oxybutynin at home Crohns disease - continue home meds Hypothyroid - continue home synthroid - TSH pending HTN - will hold meds considering current hypotension Diet: Regular Code: DNR Ppx: home xarelto Dispo: admit to telemetry FMR H&P: Upper Level - Pertinent history 77 yo CF with PMH of metastatic melenoma, chronic afib on anticoagulation, recent hospitalization at [facility] due to rhabdomyolysis and ARF presenting from rehab due to concerns of hypoTN. Pt has been struggling with physical deconditioning after a fall at the end of January at her home. She was down for an unknown amount of time until a neighbor found her on the floor the following morning. Pt was found to have ARF and rhabdo and initially managed in ICU at [facility]. Pt was eventually discharged to rehab but has been unable to partake in much physical activity beyond moving from her bed to bedside chair. Pt and daughter note good PO intake but endorse a few loose BMs over the last few days due to rx laxatives. Pt also noted to be on multiple diuretics. Pt and daughter deny fever/chills, cough, CP, SOB, NVD, abdominal pain, dysuria, dizziness, or BRBPR. - Pertinent findings Vitals: BP 98/52, HR 70, RR 18, O2 100% on RA, Tmax 98.1 oral, Wt 120kg Gen: obese, pleasant female in NAD HEENT: oropharynx reveals dry MMs CV: irregularly irregular, normal rate Resp: good effort, CTAB Abd: BS+, soft, NTTP Skin: multiple areas of ecchymosis, multiple bandages, lidocaine patch in place - Plan Date/Time: 02/27/18 2317 ITang MD PGY3, have evaluated this patient and agree with findings/ plan as outlined by international nurse resident. Pertinent changes/additions are listed here. 1. Hypotension likely 2/2 moderate hypovolemia -Patient presents from inpatient rehab with hypoTN. Pt received nitroglycerin SL due to complaints of pleuritic chest pain which worsened low BP but did not alleviated CP. Pt is asymptomatic at this time but will obtain UA along with blood and urine cultures as initial CBC reveals left shift with neutrophil predominance. Pt has a hx of metastatic disease and is possibly immunocompromised. Will also obtain FOBT as pt had 2 point drop in Hgb over 48 hours. Check TSH. -Continue IVF resuscitation. -Will monitor closely on telemetry. 2. Hypochloremic hypokalemic metabolic alkalosis -DDx includes GI loss, diuretic use, and/or contraction alkalosis due to hypovolemia. -Check Mg, Ph and replete if necessary. -KCl PO and recheck in AM. 3. Indeterminate troponin likely 2/2 number 1 -Pt c/o atypical pleuritic CP that did not improve with nitroglycerin SL -EKG reveals afib with CVR, no ST changes -Trend cardiac enzymes -Tylenol PRN 4. MINE on CKD3a -Likely prerenal and due to hypovolemia but will obtain urine studies to calculate FeUrea. -IVF and continue to monitor. -Pt also reportedly recently admitted at [facility] due to rhabdomyolysis and ARF. 5. Mild hypovolemic hyponatremia -IVF and trend -Medication reconciliation to rule out iatrogenic cause 6. Macrocytic anemia -Unclear if patient has had workup regarding anemia -Two days [employer], Hgb was 11.2 -Obtain iron studies, B12, RBC folate, and FOBT 7. Mildly elevated BNP -No evidence of hypervolemia on exam. -TTE 02/2017 revealed normal EF. Diastolic dysfunction could not be evaluated due to afib. 8. Chronic atrial fibrillation -Continue anticoagulation 9. Hypothyroidism -Check TSH and resume home medication 10. Hx of metastatic melanoma -Pt has received palliative radiation. Oncologist and palliative team at [facility]. 11. Physical deconditioning -PT consultation -CM consult to consider SNF vs other options for discharge planning as pt does not seem to be rehab candidate at this time. PPx: Xarelto for VTE, no GI indicated DNR CODE status confirmed with pt and daughter at bedside Symptomatic medications will be provided. disposition: Admit to inpatient telemetry for anticipated length of stay greater than two midnights, pending clinical course.
[2018-02-27] MEDS ORDERED: Potassium Chloride 40 MEQ in Sodium Chloride 0.9% 250 ML 250 ML IVPB SCH (23:30)
[2018-02-28] MEDS ORDERED: Ondansetron ODT 4 MG TAB PO PRN ×2 (00:47→04:17)
[2018-02-28] MEDS ORDERED: Magnesium 2 GM/50 ML 2 GM in Premix Bag 1 BAG IVPB SCH (01:30)
[2018-02-28 01:34] LABS: Troponin I 0.035 ng/mL (< 0.028)
[2018-02-28 01:57] LABS: Iron 31 ug/dL (50-170); Iron Binding Capacity, Total 164 mcg/dL (265-497)
[2018-02-28 02:19] LABS: Thyroid Stimulating Hormone 1.8628 uIU/mL (0.35-4.94)
[2018-02-28] MEDS ORDERED: Loperamide HCl 2 MG CAP PO PRN (04:17)
[2018-02-28] MEDS ORDERED: diphenhydrAMINE 25 MG CAP PO PRN (04:17)
[2018-02-28] MEDS ORDERED: Milk Of Magnesia 30 ML UDCUP PO PRN (04:17)
[2018-02-28] MEDS ORDERED: Bisacodyl 10 MG SUPP PR PRN (04:17)
[2018-02-28] MEDS ORDERED: Diabetic Tussin 200 MG/10 ML UDCUP PO PRN (04:17)
[2018-02-28 05:03] LABS: #Eosinphils 0.1 thou/uL (0.0-0.7); #Lymphocytes 0.5 thou/uL (1.20-3.40); #Neutrophils 9.4 thou/uL (1.40-6.50); %Basophils 0.1 % (0.0-1.0); %Eosinophils 0.9 % (0.0-10.0); %Lymphocytes 4.5 % (21.0-51.0); %Monocytes 8.6 % (0.0-10.0); %Neutrophils 85.9 % (42.0-75.0); Hemoglobin 9.7 g/dL (12.0-16.0); Mean Corpuscular HGB CONC 32.9 g/dL (32.0-36.0); Mean Platelet Volume 6.6 fL (7.4-10.4); Platelet Count 190 thou/uL (130-400); RBC Distribution Width 14.6 % (11.5-14.5); Red Blood Cell (RBC) Count 2.95 mill/uL (4.20-5.40)
[2018-02-28] MEDS: Lactated Ringer's 1,000 ML IV SCH ×4 (05:13→21:20)
[2018-02-28 05:16] LABS: Anion Gap 8 mmol/L (10-20); BUN (Urea Nitrogen) 49 mg/dL (9.8-20.1); Calc. Creatinine Clearance 55 mL/min (70-130); Calcium 7.8 mg/dL (7.8-10.44); Carbon Dioxide 37 mmol/L (23-31); Chloride 92 mmol/L (98-107); Estimated GFR-MDRD 35; Glucose 109 mg/dL (83-110); Potassium 3.2 mmol/L (3.5-5.1); Sodium 134 mmol/L (136-145)
[2018-02-28 05:18] LABS: Troponin I 0.027 ng/mL (< 0.028)
[2018-02-28 05:22] LABS: Creatinine, Urine 25.54 mg/dL (47-110)
[2018-02-28 05:41] LABS: Ferritin 250.94 ng/mL (10-291)
[2018-02-28 05:57] LABS: Folate (Folic Acid) 11.2 ng/mL (7.0-31.4)
[2018-02-28] MEDS: Levothyroxine Sodium 50 MCG TAB PO SCH (06:18)
[2018-02-28] MEDS ORDERED: Sodium Chloride 0.9% 1,000 ML IV SCH (08:45)
[2018-02-28] MEDS ORDERED: Potassium Chloride 40 MEQ in Premix Bag 1 BAG IVPB SCH (08:45)
[2018-02-28] MEDS ORDERED: Famotidine 20 MG TAB PO SCH (09:00)
[2018-02-28] MEDS ORDERED: Silver Sulfadiazine 1% Cream 50 GM TUBE TP SCH (09:00)
[2018-02-28] MEDS: azaTHIOprine 50 MG TAB PO SCH ×2 (10:59→21:11)
[2018-02-28] MEDS: Famotidine 20 MG TAB PO SCH (11:00)
[2018-02-28] MEDS: DULoxetine 60 MG CAP PO SCH (11:00)
[2018-02-28] MEDS: Metoprolol Tartrate 50 MG TAB PO SCH ×2 (11:01→21:11)
[2018-02-28] MEDS: Oxybutynin ER 5 MG TAB PO SCH (11:01)
[2018-02-28] MEDS: Potassium Chloride 20 MEQ TAB PO SCH ×2 (11:01→15:52)
[2018-02-28] MEDS: Rivaroxaban 15 MG TAB PO SCH (11:01)
[2018-02-28 12:57] LABS: Band 3 % (5-11); Hemoglobin 10.6 g/dL (12.0-16.0); Lymphocytes 6 % (21-51); MDiff Complete? YES; Mean Corpuscular HGB CONC 32.5 g/dL (32.0-36.0); Mean Corpuscular Hemoglobin 32.7 pg (27.0-31.0); Mean Platelet Volume 6.3 fL (7.4-10.4); Monocytes 9 % (0-10); Neutrophil 82 % (42-75); PLT Morphology Comment Appears Adequate; Platelet Count 208 thou/uL (130-400); Polychromasia SLIGHT = 2-3 cells (100X) (0-2/hpf); RBC Distribution Width 14.6 % (11.5-14.5); Red Blood Cell (RBC) Count 3.24 mill/uL (4.20-5.40); White Blood Cell (WBC) Count 11.8 thou/uL (4.8-10.8)
--- NOTE | 2018-02-28 12:57 | ULT ---
BILATERAL LOWER EXTREMITY VENOUS ULTRASOUND: HISTORY: Bilateral lower extremity pain and edema. TECHNIQUE: Villeda scale ultrasound with color flow and spectral Doppler imaging of the deep venous systems of the lower extremities is performed bilaterally. FINDINGS: There is good flow, compression, and compression and augmentation noted in the common femoral, femora l, deep femoral, popliteal, posterior tibial, and greater saphenous veins on either side. IMPRESSION: No evidence of deep vein thrombosis in either lower extremity. POS: [facility]
[2018-02-28] MEDS ORDERED: Gadobenate Dimeglumine 529 MG/1 ML (20ML VIAL) ONE (15:09)
--- NOTE | 2018-02-28 15:43 | CT ---
CT BRAIN WITHOUT CONTRAST: Comparison: 03-16-17 History: History of metastatic and melanoma. Altered mental status. Technique: Multiple contiguous axial images were obtained in a CT of the brain without contrast. FINDINGS: The brain is normal in morphology and attenuation without focal lesions or confluent areas of infarct ion. There is no evidence of hydrocephalus, intracranial hemorrhage or extraaxial fluid collection. The calvarium and overlying soft tissues are unremarkable. The visualized paranasal sinuses and masto id air cells are well aerated. IMPRESSION: No evidence of acute intracranial abnormality. POS: [facility]
--- NOTE | 2018-02-28 16:27 | MRI ---
MRI BRAIN WITH AND WITHOUT GADOLINIUM CONTRAST: HISTORY: Hypotension. Altered mental status. Recent fall. History of melanoma. FINDINGS: There is no evidence of acute intracranial hemorrhage or infarct. The ventricles appear normal in si ze, shape, and position. There is no mass effect, shift of midline structures, or abnormal areas of contrast enhancement. Mucosal thickening is evident within the mastoid air cells bilaterally. IMPRESSION: No acute intracranial abnormalities are demonstrated. POS: [facility]
[2018-02-28] MEDS: Potassium Chloride 20 MEQ in Premix Bag 1 BAG IVPB SCH ×3 (16:40→21:11)
[2018-02-28] MEDS: Silver Sulfadiazine 1% Cream 50 GM TUBE TP SCH (19:13)
[2018-03-01] MEDS: Acetaminophen 325 MG TAB PO PRN ×2 (02:31→19:55)
[2018-03-01] MEDS: Lactated Ringer's 1,000 ML IV SCH ×2 (04:00→09:42)
[2018-03-01 05:29] LABS: #Eosinphils 0.1 thou/uL (0.0-0.7); #Lymphocytes 0.5 thou/uL (1.20-3.40); #Neutrophils 8.9 thou/uL (1.40-6.50); %Basophils 0.1 % (0.0-1.0); %Eosinophils 1.1 % (0.0-10.0); %Lymphocytes 4.8 % (21.0-51.0); %Monocytes 9.1 % (0.0-10.0); Hemoglobin 9.3 g/dL (12.0-16.0); Mean Corpuscular HGB CONC 32.9 g/dL (32.0-36.0); Mean Corpuscular Hemoglobin 33.2 pg (27.0-31.0); Mean Platelet Volume 6.4 fL (7.4-10.4); Platelet Count 205 thou/uL (130-400); RBC Distribution Width 14.9 % (11.5-14.5); Red Blood Cell (RBC) Count 2.81 mill/uL (4.20-5.40); White Blood Cell (WBC) Count 10.5 thou/uL (4.8-10.8)
[2018-03-01 05:42] LABS: Anion Gap 10 mmol/L (10-20); BUN (Urea Nitrogen) 37 mg/dL (9.8-20.1); Calc. Creatinine Clearance 88 mL/min (70-130); Calcium 8.3 mg/dL (7.8-10.44); Carbon Dioxide 32 mmol/L (23-31); Chloride 97 mmol/L (98-107); Estimated GFR-MDRD 60; Glucose 110 mg/dL (83-110); Magnesium 1.7 mg/dL (1.6-2.6); Potassium 3.8 mmol/L (3.5-5.1); Sodium 135 mmol/L (136-145)
[2018-03-01] MEDS: Levothyroxine Sodium 50 MCG TAB PO SCH (05:45)
--- NOTE | 2018-03-01 05:59 | PDOC.FM ---
- Subjective Subjective: Patient is much improved from yesterday's exam. Yesterday AOx0, today AOx4. Does have some remote memory difficulties in regard to her fall, recent rehab stay and this admission but otherwise able to answer questions appropriately. She denies pain at this time, chest pain, n/v/c/d, melena, hematochezia, sob, and urinary difficulty or dysuria. No acute events overnight. - Objective MAR Reviewed: Yes Vital Signs & Weight: Vital Signs (12 hours) Temp Pulse Resp BP Pulse Ox 03/01/18 04:00 98 F 95 18 119/58 L 94 L 03/01/18 00:00 97.7 F 87 20 107/58 L 94 L 02/28/18 20:00 97.5 F L 80 20 96/53 L 98 Weight Admit Weight 108.862 kg Weight 108.862 kg I&O: 02/27/18 02/28/18 03/01/18 06:59 06:59 06:59 Intake Total 254 1488 Output Total 825 1200 Balance -571 288 Result Diagrams: 03/01/18 04:26 03/01/18 04:26 Phys Exam - Physical Examination Constitutional: NAD HEENT: sclera anicteric, oral pharynx no lesions dry MM Respiratory: no wheezing, no rales, clear to auscultation bilateral Cardiovascular: RRR, no significant murmur Gastrointestinal: soft, non-tender, no distention, positive bowel sounds trace b/l LE edema Neurological: non-focal, normal sensation, moves all 4 limbs Psychiatric: normal affect, A&O x 3 Skin: no rash Dx/Plan (1) Hypotension Status: Resolved (2) Elevated troponin Code(s): R74.8 - ABNORMAL LEVELS OF OTHER SERUM ENZYMES Status: Acute (3) Acute dehydration Code(s): E86.0 - DEHYDRATION Status: Acute (4) CKD (chronic kidney disease) stage 3, GFR 30-59 ml/min Code(s): N18.3 - CHRONIC KIDNEY DISEASE, STAGE 3 (MODERATE) Status: Acute (5) Atrial fibrillation Code(s): I48.91 - UNSPECIFIED ATRIAL FIBRILLATION Status: Acute (6) Crohns disease Code(s): K50.90 - CROHN'S DISEASE, UNSPECIFIED, WITHOUT COMPLICATIONS Status: Acute (7) Hypothyroid Code(s): E03.9 - HYPOTHYROIDISM, UNSPECIFIED Status: Acute (8) Macrocytic anemia Code(s): D53.9 - NUTRITIONAL ANEMIA, UNSPECIFIED Status: Acute (9) Metabolic alkalosis Code(s): E87.3 - ALKALOSIS Status: Acute (10) Metastatic melanoma Code(s): C79.9 - SECONDARY MALIGNANT NEOPLASM OF UNSPECIFIED SITE Status: Acute (11) Physical deconditioning Code(s): R53.81 - OTHER MALAISE Status: Acute - Plan Plan: Acute Dehydration: - hypotension much improved - UOP continues to be poor, will continue IVF (LR @ 150) and plan on discontinuing when UOP> 50ml/hr. - MM remain dry, again continue IVF and likely d/c later today or tomorrow. Encourage PO hydration. - WBC normal, but significant left shift on admission. With pt's metastatic melanoma, pt could be immunosuppressed and not mounting white count. Ucx, Bcx pending to r/o infection. Hyochloremic hypokalemic metabolic acidosis - likely 2/2 GI loss with hx of loose stools Macrocytic anemia, acute - H/H 01/19.7, stable sice admission - HGb 2 days ago was 11. - iron studies not consistent with iron deficiency. B12 and folate wnl. Likely macrocytosis from underlying neoplasm - FOBT positive, stool cultures pending - consult GI MINE on CKD3 - back at baseline - continue IVF for now, monitor UOP - monitor BMP Elevated BNP - 192. - 02/2017 BNP was in 200s. - Last echo 02/2017 showed EF 50-55% Hypokalemia, resolved will recheck tomorrow Hypomagnesemia, resolved - continue to monitor Hyponatremia, mild - improving with rehydration, continue to monitor Metastatic Melanoma - s/p R 3rd finger amputation (primary site) with mets to spine - has received some palliate radiation to spine, with plan to possibly try new medication or kyphoplasty in future. - Dr. Esaprza oncologist. Dr. Main is palliative care. At [facility]. - After last hospitalization, switched to fentanyl patches for pain, continue Deconditioning - patient transferred from rehab - 1-2 wks ago lived independently, worked - pt reportedly unable to ambulate. Only sits in chair at times - PT/OT consult - discussed possible placement at SNF with family when ready for discharge. 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
[2018-03-01] MEDS: azaTHIOprine 50 MG TAB PO SCH ×2 (08:19→19:56)
[2018-03-01] MEDS: DULoxetine 60 MG CAP PO SCH (08:19)
[2018-03-01] MEDS: Famotidine 20 MG TAB PO SCH (08:20)
[2018-03-01] MEDS: Oxybutynin ER 5 MG TAB PO SCH (08:20)
[2018-03-01] MEDS: Metoprolol Tartrate 50 MG TAB PO SCH ×2 (08:20→19:55)
[2018-03-01] MEDS: Rivaroxaban 15 MG TAB PO SCH (08:21)
--- NOTE | 2018-03-01 11:57 | PRG ---
DATE OF SERVICE: 03/01/2018 Ms. Alvarado had an episode of what sounds like delirium yesterday, but this morning she is awake, aler t, even cheerful. She has also had some blood in her stools and positive lactoferrin, so we are init iating some stool studies. She is in absolutely no distress. Unfortunately, this lady has metastati c melanoma and is currently on palliative treatment for this issue. Her prognosis is therefore very guarded. We are attempting to arrange group home placement as it is not likely she will be able to resume activities of daily living as they were before. The family will discuss this and let us know their wishes as well.
[2018-03-01 17:31] LABS: Bilirubin Negative (Negative); Blood, Urine Small (Negative); Clarity CLOUDY (Clear); Glucose, Urine (Dipstick) Negative (Negative); Leukocyte Large (Negative); Nitrite Positive (Negative); Protein, Urine (Dipstick) Trace mg/dL (Neg-Trace); Specific Gravity, Urine 1.014 (1.002-1.036); pH, Urine 7.5 (5.0-9.0)
[2018-03-01 17:34] LABS: Bacteria/HPF 1+ HPF (None Seen); Hyaline Casts/LPF 4-6 HYALINE CAST LPF (0-3 Hyaline); Pathc Cast-AUWi Flag 1.01 (0-2.49); Squamous Epithelial 0-3 HPF (0-3)
[2018-03-01] MEDS: Silver Sulfadiazine 1% Cream 50 GM TUBE TP SCH (17:36)
--- NOTE | 2018-03-02 06:13 | PDOC.FM ---
- Subjective Subjective: Patient is doing well this morning. Reported some pain yesterday but managed well with fentanyl patch. Rested well overnight. Per nursing staff had 2 loose stools yesterday. Patient denies dysuria, urgency, frequency, SOB, and chest pain this morning. She is agreeable to SNF facility once stable for discharge. - Objective MAR Reviewed: Yes Vital Signs & Weight: Vital Signs (12 hours) Temp Pulse Resp BP Pulse Ox 03/02/18 04:00 96.2 F L 73 18 114/56 L 94 L 03/02/18 00:00 80 18 03/01/18 20:00 96.6 F L 78 20 115/53 L 96 Weight Admit Weight 108.862 kg Weight 107.91 kg I&O: 02/28/18 03/01/18 03/02/18 06:59 06:59 06:59 Intake Total 254 2598 940 Output Total 825 1850 1550 Balance -575 343 -610 Result Diagrams: 03/02/18 07:17 03/02/18 07:17 <Meche Abraham - Last Filed: 03/02/18 09:11> - Objective Vital Signs & Weight: Vital Signs (12 hours) Temp Pulse Resp BP Pulse Ox 03/03/18 08:10 98.1 F 84 18 131/55 L 95 03/03/18 03:45 97.9 F 69 19 105/65 95 03/03/18 00:05 99.1 F 100 19 115/56 L 93 L Weight Admit Weight 108.862 kg Weight 109.316 kg I&O: 03/02/18 03/03/18 03/04/18 06:59 06:59 06:59 Intake Total 1060 1080 Output Total 2175 550 Balance -1115 530 Result Diagrams: 03/03/18 04:58 03/03/18 04:58 <Seven Robertson - Last Filed: 03/03/18 08:41> Phys Exam - Physical Examination Constitutional: NAD moist MM Respiratory: no wheezing, no rales, clear to auscultation bilateral Cardiovascular: no significant murmur irregularly irregular Gastrointestinal: soft, non-tender, no distention, positive bowel sounds Musculoskeletal: pulses present trace edema bilaterally Neurological: non-focal, moves all 4 limbs Psychiatric: normal affect, A&O x 3 <Meche Abraham - Last Filed: 03/02/18 09:11> Dx/Plan (1) Hypotension Status: Resolved (2) Elevated troponin Code(s): R74.8 - ABNORMAL LEVELS OF OTHER SERUM ENZYMES Status: Acute (3) Acute dehydration Code(s): E86.0 - DEHYDRATION Status: Acute (4) CKD (chronic kidney disease) stage 3, GFR 30-59 ml/min Code(s): N18.3 - CHRONIC KIDNEY DISEASE, STAGE 3 (MODERATE) Status: Acute (5) Atrial fibrillation Code(s): I48.91 - UNSPECIFIED ATRIAL FIBRILLATION Status: Acute (6) Crohns disease Code(s): K50.90 - CROHN'S DISEASE, UNSPECIFIED, WITHOUT COMPLICATIONS Status: Acute (7) Hypothyroid Code(s): E03.9 - HYPOTHYROIDISM, UNSPECIFIED Status: Acute (8) Macrocytic anemia Code(s): D53.9 - NUTRITIONAL ANEMIA, UNSPECIFIED Status: Acute (9) Metabolic alkalosis Code(s): E87.3 - ALKALOSIS Status: Acute (10) Metastatic melanoma Code(s): C79.9 - SECONDARY MALIGNANT NEOPLASM OF UNSPECIFIED SITE Status: Acute (11) Physical deconditioning Code(s): R53.81 - OTHER MALAISE Status: Acute - Plan Plan: Acute Dehydration: - hypotension much improved, daughter reports her BP runs low always - UOP improved from yesterday, and MM moist. Encourage PO hydration - WBC normal, but significant left shift on admission. With pt's metastatic melanoma, pt could be immunosuppressed and not mounting white count. Blood cx neg to date. UTI vs Asymptomatic Bacteruria - UA concerning for UTI - at this time patient is asymptomatic. With her immunosuppression though, it may be reasonable to start short course of abx therapy. Hyochloremic hypokalemic metabolic acidosis, improving - likely 2/2 GI loss with hx of loose stools - stool studies pending Macrocytic anemia, acute - H/H 01/19.7, stable sice admission - HGb 2 days ago was 11. - iron studies not consistent with iron deficiency. B12 and folate wnl. Likely macrocytosis from underlying neoplasm - FOBT positive, stool cultures pending - GI consulted, appreciate recs Elevated BNP - 192. - 02/2017 BNP was in 200s. - Last echo 02/2017 showed EF 50-55% - Monitor for s/sx of overload Hyponatremia, mild - improving with rehydration, continue to monitor Metastatic Melanoma - s/p R 3rd finger amputation (primary site) with mets to spine - has received some palliate radiation to spine, with plan to possibly try new medication or kyphoplasty in future. - Dr. Esparza oncologist. Dr. Main is palliative care. At [facility]. - After last hospitalization, switched to fentanyl patches for pain, continue Deconditioning - patient transferred from rehab - 1-2 wks ago lived independently, worked - pt reportedly unable to ambulate. Only sits in chair at times - PT/OT consult - discussed possible placement at SNF with family when ready for discharge. 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 <Meche Abraham - Last Filed: 03/02/18 09:11> Attending Addendum - Attending Addendum Date/Time: 03/03/18 0841 I personally evaluated the patient and discussed the management with Dr. Abraham yesterday. I agree with the History, Examination, Assessment and Plan documented above with any addition or exceptions noted below. <Seven Robertson - Last Filed: 03/03/18 08:41>
[2018-03-02] MEDS: Levothyroxine Sodium 50 MCG TAB PO SCH (06:18)
[2018-03-02 07:51] LABS: #Eosinphils 0.2 thou/uL (0.0-0.7); #Lymphocytes 0.6 thou/uL (1.20-3.40); #Monocytes 0.8 thou/uL (0.11-0.59); #Neutrophils 7.1 thou/uL (1.40-6.50); %Basophils 0.3 % (0.0-1.0); %Eosinophils 2.1 % (0.0-10.0); %Lymphocytes 6.4 % (21.0-51.0); %Monocytes 9.5 % (0.0-10.0); %Neutrophils 81.7 % (42.0-75.0); Hemoglobin 9.4 g/dL (12.0-16.0); Mean Corpuscular HGB CONC 32.1 g/dL (32.0-36.0); Mean Corpuscular Hemoglobin 32.7 pg (27.0-31.0); Mean Platelet Volume 6.3 fL (7.4-10.4); Platelet Count 200 thou/uL (130-400); Red Blood Cell (RBC) Count 2.89 mill/uL (4.20-5.40); White Blood Cell (WBC) Count 8.7 thou/uL (4.8-10.8)
[2018-03-02 07:58] LABS: Anion Gap 9 mmol/L (10-20); BUN (Urea Nitrogen) 31 mg/dL (9.8-20.1); Calc. Creatinine Clearance 89 mL/min (70-130); Calcium 8.3 mg/dL (7.8-10.44); Carbon Dioxide 30 mmol/L (23-31); Chloride 100 mmol/L (98-107); Estimated GFR-MDRD 61; Glucose 108 mg/dL (83-110); Potassium 4.3 mmol/L (3.5-5.1); Sodium 135 mmol/L (136-145)
--- NOTE | 2018-03-02 08:01 | CON ---
DATE OF CONSULTATION: 03/01/2018 GASTROINTESTINAL CONSULTATION REASON FOR CONSULTATION: Hemoccult positive stool. HISTORY OF PRESENT ILLNESS: Ms. Alvarado is a 77-year-old female, who was admitted to this hospital in transfer from [facility]. She has been admitted to that facility from [facility] where she was admitted on 02/18/2018. Apparently, she had fallen and was on the f roby for 2 days, but when her family member brought her when the neighbor found her then she went to [facility] on 02/20/2018. She had significant bruising, weakness, atrial fibrillation with RVR, metabolic acidosis, acute kidney failure and rhabdomyolysis. She was felt to have some demand ischemia at that point in time. Ultimately, she was rehydrated, recovered, and [facility] We have seen her in the past, specifically Dr. Mendez has seen her since 2007 if not before wit h a history of mild ileal Crohn's. She has been maintained on 5-ASA medications and azathioprine 50 mg b.i.d. Her last endoscopy with us was in 2012 that showed active disease. She had been seen luly ier this year and was having no diarrhea and no changes in her management due to her advancing age, a nd no procedures were performed. Apparently since we have seen her, she has been diagnosed with kristie noma, which is metastatic possibly into the spine. Her hemoglobin on 02/22/2018 was 9.6, white count of 8.3 and platelets of 135 with a BUN and creatinine of 66 and 1.35. She was admitted to rehab on 02/24/2018. Apparently, she had been doing okay there, but on 02/27/2018, two days ago, she had some chest pain and was transferred to the emergency room, she had 94% saturation on room air. By the ti me she had here in the emergency room, doctor noted her chest pain resolved. She had a CT angio to r ule out PE, which was negative, and she had Dopplers of her lower extremities, which were negative. She was hypotensive, however, and she was kept here. Apparently, she was having chest pain, which wa s worse with deep inspiration, unrelieved by nitro and she had systolic blood pressure in 90s prior t o admission of nitro and then after that became hypotensive and that was before her transfer here, candi estrella had some left lower chest discomfort especially into the workup. Here on arrival, hemoglobin 11.2 that was on 02/25/2018, on 02/27/2018, it was 9, on 02/28/2018, it was 9.7, then 10.6 and today it is 9.3. Because of the drop in hemoglobin from 11 to 9, she had a Hemoccult performed, which was posit aron. Additionally, she had other stool studies with positive fecal lactoferrin. She also had a urin e culture with gram negative rods. Blood cultures have been negative thus far. In talking with the patient, she denies any abdominal pain at this time. The nurses note her stools have all been brown to orange, but not bleeding or melenic. She denies any nausea, vomiting. She st ates she is eating okay. She had 1 or 2 loose stools today. Apparently last night, her stools are f ormed. The patient notes she really is getting out of bed well. She has been on chronic pain medici ne for her back, and she has been on Xarelto, and presently is on Xarelto for history of atrial fibri llation. Other studies for this hospitalization have been MRI of the brain, CT of the brain, which h ave been negative. REVIEW OF SYSTEMS: The patient denies weight loss, fever, chills, shortness of breath, dyspnea on ex ertion, cough, nausea, vomiting, abdominal pain. History of diarrhea at home. History of GI bleedin g at home. She states that her Crohn's does not bother her. She has had no abdominal pain with eati ng. CARDIOVASCULAR: Chest pain is better. She did have some pleuritic left chest pain with respira tion. No diaphoresis. Reviewing her records, she was on ulcer prophylaxis. She denies dysuria, lester quency, urgency. She denies history of stroke or musculoskeletal weakness. She is eating a regular diet and eating well. She is not able to ambulate or move bedside commode. ALLERGIES: CLEOCIN, GABAPENTIN. PAST MEDICAL HISTORY: Crohn's disease, mild in the ileum treated with Imuran diagnosed in 2007. Las t endoscopy 5 years ago showed no active disease, history of atrial fibrillation, hypertension, metas tatic melanoma, history of chronic back pain for which she is on chronic pain medicine. PAST SURGICAL HISTORY: Left knee surgery, back surgery, cataract surgery, skin cancer removal in the back of the right calf, 02/2017. She has had colonoscopies. SOCIAL HISTORY: Denies alcohol use. Does not smoke or drink. MEDICATIONS PRIOR TO ADMISSION: Lisinopril, furosemide, azathioprine 50 mg 2 a day, tizanidine, pota ssium chloride, levothyroxine, metoprolol, duloxetine, oxybutynin, metolazone, multivitamin, glucosam ine, vitamin D, E, Vision Formula. She was on ulcer prophylaxis at rehabilitation. PRESENT MEDICATIONS: P.r.n. Tylenol, aspirin, Imuran 50 mg b.i.d., duloxetine, Benadryl, Cymbalta, P epcid, Duragesic, Robitussin, Synthroid, Imodium, milk of magnesia, loperamide, Zofran, oxybutynin, o xycodone p.r.n., potassium, Xarelto, Silvadene cream to her shoulder. PHYSICAL EXAMINATION: VITAL SIGNS: Temperature is 98.4, pulse 80, blood pressure 108/54, pulse 80. GENERAL: She is overweight. She is frail. She has got a patch of a wound on the right shoulder. HEENT: Her oropharynx is dry. Her neck is supple. Her conjunctivae and sclerae are clear. Mucous members are pink. LUNGS: Clear. HEART: Regular rate and rhythm. ABDOMEN: Soft, nontender. Bowel sounds are positive, borborygmi. EXTREMITIES: No clubbing, cyanosis or edema. She has no rebound or guarding. She has an umbilical hernia, which is reducible. LABORATORY STUDIES: White count 10.5, hemoglobin 9.3, MCV 101, platelet count 205. Sodium 135, pota ssium 3.8, BUN and creatinine are 37 and 0.9, calcium 8.3. Ferritin 250. TIBC is low at 164. Iron was low at 31, lipase is normal, B12 is 512, folate is 11. TSH is 1.8, protein 4.4, albumin 2.1, AST 39, ALT 40, calcium 7.5 and glucose 116. Pending labs. C. diff toxin has been ordered. She had tw o loose stools today. ASSESSMENT: 1. The patient was admitted with hypotension. She was probably dehydrated based on her labs, this i s improved. 2. Macrocytic anemia with normal B12 and folate, this was likely related to her Imuran. 3. Chronic kidney disease. BUN and creatinine have improved. 4. BNP elevated on admission. 5. Hypokalemia and magnesemia, improved. 6. Hyponatremia, improved. 7. Hypothyroidism. 8. Anemia. Her hemoglobin is really not any different than it was on 02/22/2018 from the records fr [facility]. It does not appear she is having acute bleeding. Her iron studies would indicate anemia of chronic disease with low TIBC, iron and high ferritin, although it may be that the Imuran i s contributing to her anemia. She does have a Hemoccult positive stool with no evidence of overt hem orrhage. 9. The patient does admit to using ibuprofen and Aleve at home, so this would put her at risk for ul cers. 10. As report of metastatic melanoma, it is unclear to me what this is based on and how this has bee n treated, I do not see any documentation of this. Apparently, she is seeing palliative care and Onc ology at [facility]. 11. Chronic narcotic pain medicines. She is on a fentanyl patch at [facility]. RECOMMENDATIONS: 1. Agree with checking stool for Clostridium difficile in light of long-term hospitalization in [facility] facilities. 2. At this time, I would not embark on endoscopy as she is not able to complete a prep very easily a nd she has apparently got severe back pain and has no signs of acute hemorrhage. Her hemoglobin was stable. 3. We hold off on her Imuran, at least drop to 50 mg a week and check levels on that drug. 4. I would be very careful with her Xarelto in light of her renal dysfunction and age. 5. We would place her on a PPI for ulcer prophylaxis. We will follow along with you.
[2018-03-02] MEDS: azaTHIOprine 50 MG TAB PO SCH ×2 (09:32→20:15)
[2018-03-02] MEDS: Metoprolol Tartrate 50 MG TAB PO SCH ×2 (09:33→20:16)
[2018-03-02] MEDS: DULoxetine 60 MG CAP PO SCH (09:33)
[2018-03-02] MEDS: oxyCODONE 5 MG TAB PO PRN ×2 (09:34→14:59)
[2018-03-02] MEDS: Rivaroxaban 15 MG TAB PO SCH (09:35)
[2018-03-02] MEDS: Oxybutynin ER 5 MG TAB PO SCH (09:35)
[2018-03-02 12:36] LABS: Ref Lab Test Ordered THIO METS; Reference Lab Name PROMETHEUS
[2018-03-02] MEDS: Silver Sulfadiazine 1% Cream 50 GM TUBE TP SCH (17:16)
--- NOTE | 2018-03-02 19:55 | PRG ---
DATE OF SERVICE: 03/02/2018 SUBJECTIVE: Patient is tolerating regular diet well without any nausea or vomiting. She denies any abdominal pain. She has not had any bowel movement today (two loose bowel movements yesterday). PHYSICAL EXAMINATION: VITAL SIGNS: Temperature is 98.7, blood pressure 111/62, pulse of 83. GENERAL: She is alert, in no distress. HEENT: Shows anicteric sclerae. Oropharynx clear. NECK: Supple. HEART: Normal S1, S2. Regular rate and rhythm. CHEST: Shows breath sounds, poor excursion, but no adventitious sounds. ABDOMEN: Mildly protuberant, but soft. There is no distention, no tenderness. She has active bowel sounds. EXTREMITIES: Shows no edema. LABORATORY DATA: WBC is 8.7, hemoglobin 9.4, platelet count of 200. Electrolytes within normal rang e, creatinine 0.89. Blood culture negative x2, color urine, culture positive for Pseudomonas. ASSESSMENT: 1. Heme-positive stool, no evidence of overt bleeding at the present time. Patient is on Pradaxa. Her blood count has remained stable. 2. History of Crohn's disease, in remission for the last several years on azathioprine. 3. Hypertension from dehydration, resolved. 4. Prerenal azotemia, improving with hydration. 5. Atrial fibrillation, rate control. 6. Metastatic melanoma. 7. Urinary tract infection. 8. Physical deconditioning. RECOMMENDATIONS: 1. No new recommendations from GI standpoint. The patient is without any evidence of significant GI bleeding and heme positive stool is likely of little clinical significance at the moment. Endoscopi c intervention is not indicated or advised. We will follow up stool studies for any C. diff which ap pears to be unlikely as patient has not had any significant diarrhea over the last 24 hours. 2. We will follow.
[2018-03-03] MEDS: Levothyroxine Sodium 50 MCG TAB PO SCH (05:45)
[2018-03-03 05:48] LABS: #Eosinphils 0.2 thou/uL (0.0-0.7); #Lymphocytes 0.5 thou/uL (1.20-3.40); #Monocytes 0.8 thou/uL (0.11-0.59); %Basophils 0.6 % (0.0-1.0); %Eosinophils 2.6 % (0.0-10.0); %Monocytes 10.6 % (0.0-10.0); %Neutrophils 79.3 % (42.0-75.0); Hemoglobin 9.8 g/dL (12.0-16.0); Mean Corpuscular HGB CONC 32.2 g/dL (32.0-36.0); Mean Corpuscular Hemoglobin 32.8 pg (27.0-31.0); Mean Platelet Volume 6.4 fL (7.4-10.4); Platelet Count 206 thou/uL (130-400); RBC Distribution Width 14.7 % (11.5-14.5); Red Blood Cell (RBC) Count 2.97 mill/uL (4.20-5.40); White Blood Cell (WBC) Count 7.6 thou/uL (4.8-10.8)
[2018-03-03 06:17] LABS: Anion Gap 11 mmol/L (10-20); BUN (Urea Nitrogen) 26 mg/dL (9.8-20.1); Calc. Creatinine Clearance 99 mL/min (70-130); Calcium 8.5 mg/dL (7.8-10.44); Carbon Dioxide 26 mmol/L (23-31); Chloride 102 mmol/L (98-107); Estimated GFR-MDRD 68; Glucose 106 mg/dL (83-110); Potassium 4.6 mmol/L (3.5-5.1); Sodium 134 mmol/L (136-145)
--- NOTE | 2018-03-03 06:41 | PDOC.FM ---
- Subjective Subjective: Patient is doing well this morning. She is without complaints. No acute events overnight. Denies CP, SOB, dysuria, and arm pain. No bloody bowel movements or diarrheal episodes reported to me yesterday. - Objective MAR Reviewed: Yes Vital Signs & Weight: Vital Signs (12 hours) Temp Pulse Resp BP Pulse Ox 03/03/18 03:45 97.9 F 69 19 105/65 95 03/03/18 00:05 99.1 F 100 19 115/56 L 93 L 03/02/18 20:14 96.6 F L 77 18 109/76 Weight Admit Weight 108.862 kg Weight 109.316 kg I&O: 03/01/18 03/02/18 03/03/18 06:59 06:59 06:59 Intake Total 2598 1060 1080 Output Total 1850 2175 550 Balance 748 -1115 530 Result Diagrams: 03/03/18 04:58 03/03/18 04:58 Phys Exam - Physical Examination Constitutional: NAD dry MM Respiratory: no wheezing, no rales, clear to auscultation bilateral Cardiovascular: RRR, no significant murmur Gastrointestinal: soft, non-tender Musculoskeletal: no edema Neurological: moves all 4 limbs Psychiatric: normal affect, A&O x 3 Dx/Plan (1) Hypotension Status: Resolved (2) Elevated troponin Code(s): R74.8 - ABNORMAL LEVELS OF OTHER SERUM ENZYMES Status: Acute (3) Acute dehydration Code(s): E86.0 - DEHYDRATION Status: Acute (4) CKD (chronic kidney disease) stage 3, GFR 30-59 ml/min Code(s): N18.3 - CHRONIC KIDNEY DISEASE, STAGE 3 (MODERATE) Status: Acute (5) Atrial fibrillation Code(s): I48.91 - UNSPECIFIED ATRIAL FIBRILLATION Status: Acute (6) Crohns disease Code(s): K50.90 - CROHN'S DISEASE, UNSPECIFIED, WITHOUT COMPLICATIONS Status: Acute (7) Hypothyroid Code(s): E03.9 - HYPOTHYROIDISM, UNSPECIFIED Status: Acute (8) Macrocytic anemia Code(s): D53.9 - NUTRITIONAL ANEMIA, UNSPECIFIED Status: Acute (9) Metabolic alkalosis Code(s): E87.3 - ALKALOSIS Status: Acute (10) Metastatic melanoma Code(s): C79.9 - SECONDARY MALIGNANT NEOPLASM OF UNSPECIFIED SITE Status: Acute (11) Physical deconditioning Code(s): R53.81 - OTHER MALAISE Status: Acute - Plan Plan: Deconditioning - patient transferred from rehab - 1-2 wks ago lived independently, worked - PT/OT is working with patient. They report max assist with all tasks. Right now requiring help to feed herself. - pending SNF placement Acute Dehydration: - hypotension much improved, daughter reports her BP runs low always - UOP improved from yesterday, and MM moist. Encourage PO hydration Asymptomatic Bacteruria - UA concerning for UTI, urine cx grew Psuedomonas - at this time patient is asymptomatic. With her immunosuppression though, it may be reasonable to start short course of abx therapy. The research I have found does not support or discourage treatment of asymptomatic bacteriuria in immunosuppressed patients. Macrocytic anemia - H/H 9 stable since admission - iron studies not consistent with iron deficiency. B12 and folate wnl. Likely macrocytosis from underlying neoplasm vs medication SE - decrease Imuran to q7d per GI recs - FOBT positive, stool cultures pending - GI consulted, appreciate recs Elevated BNP - 192. - 02/2017 BNP was in 200s. - Last echo 02/2017 showed EF 50-55% - Monitor for s/sx of overload Hyponatremia, mild - improving with rehydration, continue to monitor Metastatic Melanoma - s/p R 3rd finger amputation (primary site) with mets to spine - has received some palliate radiation to spine, with plan to possibly try new medication or kyphoplasty in future. - Dr. Esparza oncologist. Dr. Main is palliative care. At [facility]. 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 Urinary incontinence - on oxybutynin at home Crohns disease - continue home meds Hypothyroid - continue home synthroid - TSH pending HTN - continue to hold meds considering current hypotension Hyochloremic hypokalemic metabolic acidosis, resolved - likely 2/2 GI loss with hx of loose stools - stool studies pending Elevated troponin, resolved - downtrending, likely 2/2 demand and renal insufficiency Hypokalemia, resolved will recheck tomorrow Hypomagnesemia, resolved - continue to monitor MINE on CKD3, resolved - back at baseline - PO hydration - monitor BMP Diet: Regular Code: DNR Ppx: home xarelto Dispo: d/c pending placement.
[2018-03-03] MEDS: Metoprolol Tartrate 50 MG TAB PO SCH ×2 (09:46→21:54)
[2018-03-03] MEDS: DULoxetine 60 MG CAP PO SCH (09:46)
[2018-03-03] MEDS: Rivaroxaban 15 MG TAB PO SCH (09:46)
[2018-03-03] MEDS: Oxybutynin ER 5 MG TAB PO SCH (09:46)
[2018-03-03] MEDS ORDERED: azaTHIOprine 50 MG TAB PO SCH (10:00)
[2018-03-03] MEDS: azaTHIOprine 50 MG TAB PO SCH (10:02)
[2018-03-03] MEDS: oxyCODONE 5 MG TAB PO PRN ×3 (10:57→21:59)
--- NOTE | 2018-03-03 11:47 | ADD-PRG ---
DATE OF SERVICE: 03/03/2018 This is an addendum to the note of Dr. Meche Abraham. SUBJECTIVE: Ms. Alvarado is resting quietly in bed. She is in no distress. She was seen by GI yester day and we appreciate their recommendations. We are again awaiting placement. No new medical issues .
[2018-03-03 12:07] VITALS: BMI 41.3
--- NOTE | 2018-03-03 15:38 | PRG ---
DATE OF SERVICE: 03/03/2018 SUBJECTIVE: Other than her chronic back pain, the patient is without complaint. She is eating well. There is a very small bowel movement this morning, not enough for any stool sampling. There is no diarrhea, nausea, or vomiting. PHYSICAL EXAMINATION: VITAL SIGNS: Temperature is 98.0, blood pressure 112/89, pulse of 87. GENERAL: She is alert, conversant, does not appear in any distress. HEENT: Shows anicteric sclerae. Oropharynx clear. NECK: Supple. HEART: Normal S1, S2 regular rate and rhythm. CHEST: Shows breath sounds, no adventitious sounds. ABDOMEN: Very protuberant, but no tenderness, no distention. There is no tympany. Organomegaly is difficult to assess secondary to size. She has active bowel sounds. EXTREMITIES: Exam does not show any edema. LABORATORY DATA: WBC 7.6, hemoglobin 9.8, hematocrit is 30.4, platelet count is 206. Electrolytes w ithin normal range, creatinine is 0.81. ASSESSMENT: 1. Heme-positive stool, likely of no clinical significance. There is no evidence of overt gastroint estinal bleeding. The patient is on Pradaxa with blood count remaining very stable since admission. 2. History of Crohn's disease, clinically in remission for the last several years, on azathioprine. 3. Hypotension on admission from dehydration, resolved. 4. Prerenal azotemia, resolved with hydration. 5. Atrial fibrillation, rate control. 6. Urinary tract infection. 7. Metastatic melanoma. 8. Physical deconditioning. RECOMMENDATIONS: Overall, the patient is doing well from GI standpoint. There is no new recommendation. No indicatio n or plan for any endoscopic intervention unless patient has clinically overt bleeding. It is very u nlikely that the patient has C. diff at this point given the fact that she has not had any diarrhea o suzie the last 2 days. Please call if GI service is needed.
[2018-03-03] MEDS: Silver Sulfadiazine 1% Cream 50 GM TUBE TP SCH (18:23)
--- NOTE | 2018-03-04 05:22 | PDOC.FM ---
- Subjective Subjective: Patient had a good night. Today reports urinary sx although has denied on previous days. She is at her baseline mental state and denies any pain, SOB, cough, n/v/c/d. NAEO. - Objective MAR Reviewed: Yes Vital Signs & Weight: Vital Signs (12 hours) Temp Pulse Resp BP Pulse Ox 03/04/18 04:00 97.7 F 85 14 119/60 92 L 03/03/18 20:00 97.8 F 86 19 118/55 L 94 L Weight Admit Weight 108.862 kg Weight 109.316 kg I&O: 03/02/18 03/03/18 03/04/18 06:59 06:59 06:59 Intake Total 1060 1080 845 Output Total 2175 550 Balance -1115 530 845 Result Diagrams: 03/03/18 04:58 03/03/18 04:58 Phys Exam - Physical Examination Constitutional: NAD HEENT: moist MMs Respiratory: no wheezing, no rales, clear to auscultation bilateral Cardiovascular: RRR, no significant murmur Gastrointestinal: soft, no distention, positive bowel sounds suprapubic tenderness 1+ b/l edema of LE and RUE Neurological: non-focal, moves all 4 limbs generalized weakness Psychiatric: normal affect, A&O x 3 Dx/Plan (1) Physical deconditioning Code(s): R53.81 - OTHER MALAISE Status: Acute (2) Acute dehydration Code(s): E86.0 - DEHYDRATION Status: Resolved (3) CKD (chronic kidney disease) stage 3, GFR 30-59 ml/min Code(s): N18.3 - CHRONIC KIDNEY DISEASE, STAGE 3 (MODERATE) Status: Acute (4) Atrial fibrillation Code(s): I48.91 - UNSPECIFIED ATRIAL FIBRILLATION Status: Acute (5) Crohns disease Code(s): K50.90 - CROHN'S DISEASE, UNSPECIFIED, WITHOUT COMPLICATIONS Status: Acute (6) Hypothyroid Code(s): E03.9 - HYPOTHYROIDISM, UNSPECIFIED Status: Acute (7) Macrocytic anemia Code(s): D53.9 - NUTRITIONAL ANEMIA, UNSPECIFIED Status: Acute (8) Metastatic melanoma Code(s): C79.9 - SECONDARY MALIGNANT NEOPLASM OF UNSPECIFIED SITE Status: Acute (9) Hypotension Status: Resolved (10) Elevated troponin Code(s): R74.8 - ABNORMAL LEVELS OF OTHER SERUM ENZYMES Status: Resolved (11) Metabolic alkalosis Code(s): E87.3 - ALKALOSIS Status: Resolved - Plan Plan: Deconditioning - patient transferred from rehab - 1-2 wks ago lived independently, worked - PT/OT is working with patient. They report max assist with all tasks. Right now requiring help to feed herself. - pending SNF placement Acute Dehydration: - hypotension much improved, daughter reports her BP runs low always - UOP improved from yesterday, and MM moist. Encourage PO hydration UTI - UA concerning for UTI, urine cx grew Psuedomonas, patient now symptomatic - will treat with abx, Rocephin x1 Macrocytic anemia - H/H 9 stable since admission - iron studies not consistent with iron deficiency. B12 and folate wnl. Likely macrocytosis from underlying neoplasm vs medication SE - decrease Imuran to q7d per GI recs - FOBT positive, stool cultures pending - GI consulted, appreciate recs Elevated BNP - 192. - 02/2017 BNP was in 200s. - Last echo 02/2017 showed EF 50-55% - Monitor for s/sx of overload Hyponatremia, mild - improving with rehydration, continue to monitor Metastatic Melanoma - s/p R 3rd finger amputation (primary site) with mets to spine - has received some palliate radiation to spine, with plan to possibly try new medication or kyphoplasty in future. - Dr. Esparza oncologist. Dr. Main is palliative care. At [facility]. 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 Urinary incontinence - on oxybutynin at home Crohns disease - continue home meds Hypothyroid - continue home synthroid - TSH pending HTN - continue to hold meds considering current hypotension Hyochloremic hypokalemic metabolic acidosis, resolved - likely 2/2 GI loss with hx of loose stools - stool studies pending Elevated troponin, resolved - downtrending, likely 2/2 demand and renal insufficiency Hypokalemia, resolved will recheck tomorrow Hypomagnesemia, resolved - continue to monitor MINE on CKD3, resolved - back at baseline - PO hydration - monitor BMP Diet: Regular Code: DNR Ppx: home xarelto Dispo: d/c pending placement.
[2018-03-04] MEDS: oxyCODONE 5 MG TAB PO PRN ×3 (06:32→15:24)
[2018-03-04] MEDS: Levothyroxine Sodium 50 MCG TAB PO SCH (06:32)
[2018-03-04] MEDS: Metoprolol Tartrate 50 MG TAB PO SCH ×2 (10:06→20:36)
[2018-03-04] MEDS: DULoxetine 60 MG CAP PO SCH (10:06)
[2018-03-04] MEDS: Oxybutynin ER 5 MG TAB PO SCH (10:07)
[2018-03-04] MEDS: Rivaroxaban 15 MG TAB PO SCH (10:07)
[2018-03-04] MEDS: Cefepime 1 GM in Sodium Chloride 0.9% 100 ML IVPB SCH ×2 (11:02→22:37)
--- NOTE | 2018-03-04 11:41 | PRG ---
DATE OF SERVICE: 03/04/2018 This is an addendum to the note of Dr. Meche Abraham. Over the last 2-3 days Ms. Alvarado has developed some swelling in her right upper extremity. I am con cerned about the possibility of DVT as she is metastatic malignancy and is at bed rest. She is on Xa relto, which would of course treat her DVT. She also states she does indeed have burning on urination. She did grow a Pseudomonas from her urine , sensitive to cefepime. We will initiate treatment with such and possibly follow up with Cipro if s he is discharged before the weekend.
--- NOTE | 2018-03-04 13:03 | ULT ---
DOPPLER VENOUS ULTRASOUND OF RIGHT UPPER EXTREMITY: INDICATION: Right upper extremity swelling and pain. TECHNIQUE: Villeda scale, color flow, and spectral Doppler images were obtained of the venous structures of the rig ht upper extremity. FINDINGS: There is normal flow and augmentation seen within the venous structures of the right upper extremity. IMPRESSION: No evidence of deep vein thrombosis within the right upper extremity. POS: [facility]
[2018-03-04] MEDS: Silver Sulfadiazine 1% Cream 50 GM TUBE TP SCH (18:29)
[2018-03-05] MEDS: Levothyroxine Sodium 50 MCG TAB PO SCH (05:36)
--- NOTE | 2018-03-05 05:50 | PDOC.FM ---
- Subjective Subjective: Patient is very sleepy this morning but reports continued dysuria. Otherwise reports "all is well." Denies CP, SOB, and n/v/d/c. No acute events overnight. - Objective MAR Reviewed: Yes Vital Signs & Weight: Vital Signs (12 hours) Temp Pulse Resp BP Pulse Ox 03/05/18 04:10 97.5 F L 72 17 110/56 L 100 03/04/18 20:05 97.4 F L 80 16 126/63 98 Weight Admit Weight 108.862 kg Weight 104.326 kg I&O: 03/03/18 03/04/18 03/05/18 06:59 06:59 06:59 Intake Total 1080 845 840 Output Total 550 Balance 530 845 840 Result Diagrams: 03/03/18 04:58 03/03/18 04:58 <Meche Abraham - Last Filed: 03/05/18 07:44> - Objective Vital Signs & Weight: Vital Signs (12 hours) Temp Pulse Resp BP Pulse Ox 03/05/18 09:15 97 03/05/18 07:50 97.3 F L 66 18 113/77 97 03/05/18 04:10 97.5 F L 72 17 110/56 L 100 Weight Admit Weight 108.862 kg Weight 104.326 kg I&O: 03/04/18 03/05/18 03/06/18 06:59 06:59 06:59 Intake Total 845 1150 Output Total 400 Balance 845 750 Result Diagrams: 03/03/18 04:58 03/03/18 04:58 <Lamin Carey - Last Filed: 03/05/18 11:47> Phys Exam - Physical Examination Constitutional: NAD HEENT: moist MMs Respiratory: no wheezing, no rales, clear to auscultation bilateral Cardiovascular: no significant murmur irregularly irregular Gastrointestinal: soft, non-tender, no distention, positive bowel sounds Neurological: moves all 4 limbs Psychiatric: normal affect, A&O x 3 <Meche Abraham - Last Filed: 03/05/18 07:44> Dx/Plan (1) Physical deconditioning Code(s): R53.81 - OTHER MALAISE Status: Acute (2) Acute dehydration Code(s): E86.0 - DEHYDRATION Status: Resolved (3) CKD (chronic kidney disease) stage 3, GFR 30-59 ml/min Code(s): N18.3 - CHRONIC KIDNEY DISEASE, STAGE 3 (MODERATE) Status: Acute (4) Atrial fibrillation Code(s): I48.91 - UNSPECIFIED ATRIAL FIBRILLATION Status: Acute (5) Crohns disease Code(s): K50.90 - CROHN'S DISEASE, UNSPECIFIED, WITHOUT COMPLICATIONS Status: Acute (6) Hypothyroid Code(s): E03.9 - HYPOTHYROIDISM, UNSPECIFIED Status: Acute (7) Macrocytic anemia Code(s): D53.9 - NUTRITIONAL ANEMIA, UNSPECIFIED Status: Acute (8) Metastatic melanoma Code(s): C79.9 - SECONDARY MALIGNANT NEOPLASM OF UNSPECIFIED SITE Status: Acute (9) Hypotension Status: Resolved (10) Elevated troponin Code(s): R74.8 - ABNORMAL LEVELS OF OTHER SERUM ENZYMES Status: Resolved (11) Metabolic alkalosis Code(s): E87.3 - ALKALOSIS Status: Resolved - Plan Plan: Deconditioning - patient transferred from rehab, 1-2 wks ago lived independently, worked - PT/OT is working with patient. They report max assist with all tasks. Right now requiring help to feed herself. - pending SNF placement UTI - UA concerning for UTI, urine cx grew Psuedomonas, patient now symptomatic - will treat with abx, Cefepime IV for 3 days RUE Edema - s/p lymph node resection of that axilla - s/p IVF resuscitation - doppler negative for clot - likely venous stasis vs lymphedema - no s/sx of infection, continue to monitor. Macrocytic anemia - H/H 9 stable since admission - iron studies not consistent with iron deficiency. B12 and folate wnl. Likely macrocytosis from underlying neoplasm vs medication SE - decrease Imuran to q7d per GI recs - FOBT positive - GI consulted, appreciate recs Acute Dehydration, resolved - hypotension much improved, daughter reports her BP runs low always - UOP improved and MM moist. Encourage PO hydration Elevated BNP - 192. - 02/2017 BNP was in 200s. - Last echo 02/2017 showed EF 50-55% - Monitor for s/sx of overload, none since fluid resuscitation Hyponatremia, mild - improving with rehydration, continue to monitor Metastatic Melanoma - s/p R 3rd finger amputation (primary site) with mets to spine - has received some palliate radiation to spine, with plan to possibly try new medication or kyphoplasty in future. - Dr. Esparza oncologist. Dr. Main is palliative care. At [facility]. 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 Urinary incontinence - on oxybutynin at home Crohns disease - continue home meds Hypothyroid - continue home synthroid - TSH pending HTN - continue to hold meds considering current hypotension Hyochloremic hypokalemic metabolic acidosis, resolved - likely 2/2 GI loss with hx of loose stools - stool studies pending Elevated troponin, resolved - downtrending, likely 2/2 demand and renal insufficiency Hypokalemia, resolved will recheck tomorrow Hypomagnesemia, resolved - continue to monitor MINE on CKD3, resolved - back at baseline - PO hydration - monitor BMP Diet: Regular Code: DNR Ppx: home xarelto Dispo: d/c pending placement. <Meche Abraham - Last Filed: 03/05/18 07:44> Attending Addendum - Attending Addendum Date/Time: 03/05/18 1147 I personally evaluated the patient and discussed the management with Dr. Abraham. I agree with and repeated the History, Examination, Assessment and Plan documented above with any addition or exceptions noted below. <Lamin Carey - Last Filed: 03/05/18 11:47>
[2018-03-05] MEDS: Oxybutynin ER 5 MG TAB PO SCH (09:34)
[2018-03-05] MEDS: Rivaroxaban 15 MG TAB PO SCH (09:35)
[2018-03-05] MEDS: Metoprolol Tartrate 50 MG TAB PO SCH ×2 (09:35→20:09)
[2018-03-05] MEDS: DULoxetine 60 MG CAP PO SCH (09:35)
[2018-03-05] MEDS: Cefepime 1 GM in Sodium Chloride 0.9% 100 ML IVPB SCH ×2 (12:12→23:25)
[2018-03-05] MEDS: Silver Sulfadiazine 1% Cream 50 GM TUBE TP SCH (18:15)
[2018-03-05] MEDS: oxyCODONE 5 MG TAB PO PRN (20:08)
[2018-03-06] MEDS: Levothyroxine Sodium 50 MCG TAB PO SCH (05:16)
--- NOTE | 2018-03-06 05:47 | PDOC.FM ---
- Subjective Subjective: Patient doing well today. Has no complaints. Slept well. Reports normal urination and defecation. No acute events overnight. - Objective MAR Reviewed: Yes Vital Signs & Weight: Vital Signs (12 hours) Temp Pulse Resp BP Pulse Ox 03/06/18 04:00 97.7 F 95 18 106/59 L 94 L 03/05/18 19:50 97 03/05/18 19:45 98 F 93 16 102/75 97 Weight Admit Weight 108.862 kg Weight 107.218 kg I&O: 03/04/18 03/05/18 03/06/18 06:59 06:59 06:59 Intake Total 845 1150 240 Output Total 400 100 Balance 845 750 140 Result Diagrams: 03/03/18 04:58 03/03/18 04:58 <Meche Abraham - Last Filed: 03/06/18 07:27> - Objective Vital Signs & Weight: Vital Signs (12 hours) Temp Pulse Resp BP Pulse Ox 03/06/18 07:54 97.9 F 88 16 153/67 H 97 03/06/18 04:00 97.7 F 95 18 106/59 L 94 L Weight Admit Weight 108.862 kg Weight 107.218 kg I&O: 03/05/18 03/06/18 03/07/18 06:59 06:59 06:59 Intake Total 1150 240 Output Total 400 100 Balance 750 140 Result Diagrams: 03/03/18 04:58 03/03/18 04:58 <Lamin Carey - Last Filed: 03/06/18 12:59> Phys Exam - Physical Examination Constitutional: NAD HEENT: moist MMs Respiratory: no wheezing, no rales, clear to auscultation bilateral irregularly irregular Gastrointestinal: soft, non-tender, no distention 1+ edema bilateral LE Psychiatric: normal affect, A&O x 3 <Meche Abraham - Last Filed: 03/06/18 07:27> Dx/Plan (1) Physical deconditioning Code(s): R53.81 - OTHER MALAISE Status: Acute (2) Acute dehydration Code(s): E86.0 - DEHYDRATION Status: Resolved (3) CKD (chronic kidney disease) stage 3, GFR 30-59 ml/min Code(s): N18.3 - CHRONIC KIDNEY DISEASE, STAGE 3 (MODERATE) Status: Acute (4) Atrial fibrillation Code(s): I48.91 - UNSPECIFIED ATRIAL FIBRILLATION Status: Acute (5) Crohns disease Code(s): K50.90 - CROHN'S DISEASE, UNSPECIFIED, WITHOUT COMPLICATIONS Status: Acute (6) Hypothyroid Code(s): E03.9 - HYPOTHYROIDISM, UNSPECIFIED Status: Acute (7) Macrocytic anemia Code(s): D53.9 - NUTRITIONAL ANEMIA, UNSPECIFIED Status: Acute (8) Metastatic melanoma Code(s): C79.9 - SECONDARY MALIGNANT NEOPLASM OF UNSPECIFIED SITE Status: Acute (9) Hypotension Status: Resolved (10) Elevated troponin Code(s): R74.8 - ABNORMAL LEVELS OF OTHER SERUM ENZYMES Status: Resolved (11) Metabolic alkalosis Code(s): E87.3 - ALKALOSIS Status: Resolved - Plan Plan: Deconditioning - patient transferred from rehab, 1-2 wks ago lived independently, worked - PT/OT is working with patient. They report max assist with all tasks. Right now requiring help to feed herself. - pending SNF placement UTI - UA concerning for UTI, urine cx grew Psuedomonas, patient now symptomatic - will treat with abx, Cefepime IV, dc date is 03/08 RUE Edema - s/p lymph node resection of that axilla - s/p IVF resuscitation - doppler negative for clot - likely venous stasis vs lymphedema - no s/sx of infection, continue to monitor. Macrocytic anemia - H/H 9 stable since admission - iron studies not consistent with iron deficiency. B12 and folate wnl. Likely macrocytosis from underlying neoplasm vs medication SE - decrease Imuran to q7d per GI recs - FOBT positive - GI consulted, appreciate recs Acute Dehydration, resolved - hypotension much improved, daughter reports her BP runs low always - UOP improved and MM moist. Encourage PO hydration Elevated BNP - 192. - 02/2017 BNP was in 200s. - Last echo 02/2017 showed EF 50-55% - Monitor for s/sx of overload, none since fluid resuscitation Hyponatremia, mild - improving with rehydration, continue to monitor Metastatic Melanoma - s/p R 3rd finger amputation (primary site) with mets to spine - has received some palliate radiation to spine, with plan to possibly try new medication or kyphoplasty in future. - Dr. Esparza oncologist. Dr. Main is palliative care. At [facility]. 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 Urinary incontinence - on oxybutynin at home Crohns disease - continue home meds Hypothyroid - continue home synthroid - TSH pending HTN - continue to hold meds considering current hypotension Hyochloremic hypokalemic metabolic acidosis, resolved - likely 2/2 GI loss with hx of loose stools - stool studies pending Elevated troponin, resolved - downtrending, likely 2/2 demand and renal insufficiency Hypokalemia, resolved will recheck tomorrow Hypomagnesemia, resolved - continue to monitor MINE on CKD3, resolved - back at baseline - PO hydration - monitor BMP Diet: Regular Code: DNR Ppx: home xarelto Dispo: d/c pending placement. <Meche Abraham - Last Filed: 03/06/18 07:27> Attending Addendum - Attending Addendum Date/Time: 03/06/18 4931 I personally evaluated the patient and discussed the management with Dr. Abraham. I agree with and repeated the History, Examination, Assessment and Plan documented above with any addition or exceptions noted below. Would minimize course of cefepime. <Lamin Carey - Last Filed: 03/06/18 12:59>
[2018-03-06] MEDS: Metoprolol Tartrate 50 MG TAB PO SCH ×2 (09:17→20:04)
[2018-03-06] MEDS: Rivaroxaban 15 MG TAB PO SCH (09:17)
[2018-03-06] MEDS: DULoxetine 60 MG CAP PO SCH (09:17)
[2018-03-06] MEDS: Oxybutynin ER 5 MG TAB PO SCH (09:18)
[2018-03-06] MEDS: Cefepime 1 GM in Sodium Chloride 0.9% 100 ML IVPB SCH ×2 (10:36→23:22)
[2018-03-06] MEDS: Silver Sulfadiazine 1% Cream 50 GM TUBE TP SCH (17:57)
[2018-03-07] MEDS: Levothyroxine Sodium 50 MCG TAB PO SCH (05:32)
--- NOTE | 2018-03-07 08:20 | PDOC.FM ---
- Subjective Subjective: Patient doing well this morning, reports sleeping well. Has no concerns. Denies dysuria, pain, CP, sob, and n/v/d/c. NAEO - Objective MAR Reviewed: Yes Vital Signs & Weight: Vital Signs (12 hours) Temp Pulse Resp BP Pulse Ox 03/07/18 07:30 98.1 F 78 18 118/76 96 03/07/18 04:00 97.8 F 91 16 122/68 97 Weight Admit Weight 108.862 kg Weight 109.316 kg I&O: 03/06/18 03/07/18 03/08/18 06:59 06:59 06:59 Intake Total 240 240 Output Total 100 300 Balance 140 -60 Result Diagrams: 03/03/18 04:58 03/03/18 04:58 <Meche Abraham - Last Filed: 03/07/18 08:18> - Objective Vital Signs & Weight: Vital Signs (12 hours) Temp Pulse Resp BP Pulse Ox 03/07/18 09:15 96 03/07/18 07:30 98.1 F 78 18 118/76 96 03/07/18 04:00 97.8 F 91 16 122/68 97 Weight Admit Weight 108.862 kg Weight 109.316 kg I&O: 03/06/18 03/07/18 03/08/18 06:59 06:59 06:59 Intake Total 240 240 Output Total 100 300 Balance 140 -60 Result Diagrams: 03/03/18 04:58 03/03/18 04:58 <Lamin Carey - Last Filed: 03/07/18 11:00> Phys Exam - Physical Examination Constitutional: NAD HEENT: moist MMs Respiratory: no wheezing, no rales, clear to auscultation bilateral Cardiovascular: no significant murmur irregularly irregular Gastrointestinal: soft, non-tender Neurological: moves all 4 limbs Psychiatric: A&O x 3 <Meche Abraham - Last Filed: 03/07/18 08:18> Dx/Plan (1) Physical deconditioning Code(s): R53.81 - OTHER MALAISE Status: Acute (2) Acute dehydration Code(s): E86.0 - DEHYDRATION Status: Resolved (3) CKD (chronic kidney disease) stage 3, GFR 30-59 ml/min Code(s): N18.3 - CHRONIC KIDNEY DISEASE, STAGE 3 (MODERATE) Status: Acute (4) Atrial fibrillation Code(s): I48.91 - UNSPECIFIED ATRIAL FIBRILLATION Status: Acute (5) Crohns disease Code(s): K50.90 - CROHN'S DISEASE, UNSPECIFIED, WITHOUT COMPLICATIONS Status: Acute (6) Hypothyroid Code(s): E03.9 - HYPOTHYROIDISM, UNSPECIFIED Status: Acute (7) Macrocytic anemia Code(s): D53.9 - NUTRITIONAL ANEMIA, UNSPECIFIED Status: Acute (8) Metastatic melanoma Code(s): C79.9 - SECONDARY MALIGNANT NEOPLASM OF UNSPECIFIED SITE Status: Acute (9) Hypotension Status: Resolved (10) Elevated troponin Code(s): R74.8 - ABNORMAL LEVELS OF OTHER SERUM ENZYMES Status: Resolved (11) Metabolic alkalosis Code(s): E87.3 - ALKALOSIS Status: Resolved - Plan Plan: Deconditioning - patient transferred from rehab, 1-2 wks ago lived independently, worked - PT/OT is working with patient. They report max assist with all tasks. Right now requiring help to feed herself. - pending SNF placement UTI - UA concerning for UTI, urine cx grew Psuedomonas, patient now symptomatic - continue Cefepime IV, dc date is 03/07 RUE Edema - s/p lymph node resection of that axilla - s/p IVF resuscitation - doppler negative for clot - likely venous stasis vs lymphedema - no s/sx of infection, continue to monitor. Macrocytic anemia - H/H 9 stable since admission - iron studies not consistent with iron deficiency. B12 and folate wnl. Likely macrocytosis from underlying neoplasm vs medication SE - decrease Imuran to q7d per GI recs - FOBT positive - GI consulted, appreciate recs Acute Dehydration, resolved - hypotension much improved, daughter reports her BP runs low always - UOP improved and MM moist. Encourage PO hydration Elevated BNP - 192. - 02/2017 BNP was in 200s. - Last echo 02/2017 showed EF 50-55% - Monitor for s/sx of overload, none since fluid resuscitation Hyponatremia, mild - improving with rehydration, continue to monitor Metastatic Melanoma - s/p R 3rd finger amputation (primary site) with mets to spine - has received some palliate radiation to spine, with plan to possibly try new medication or kyphoplasty in future. - Dr. Esparza oncologist. Dr. Main is palliative care. At [facility]. 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 Urinary incontinence - on oxybutynin at home Crohns disease - continue home meds Hypothyroid - continue home synthroid - TSH pending HTN - continue to hold meds considering current hypotension Hyochloremic hypokalemic metabolic acidosis, resolved - likely 2/2 GI loss with hx of loose stools - stool studies pending Elevated troponin, resolved - downtrending, likely 2/2 demand and renal insufficiency Hypokalemia, resolved will recheck tomorrow Hypomagnesemia, resolved - continue to monitor MINE on CKD3, resolved - back at baseline - PO hydration - monitor BMP Diet: Regular Code: DNR Ppx: home xarelto Dispo: d/c pending placement. <Meche Abraham - Last Filed: 03/07/18 08:18> Attending Addendum - Attending Addendum Date/Time: 03/07/18 1229 I personally evaluated the patient and discussed the management with Dr. Abraham. I agree with and repeated the History, Examination, Assessment and Plan documented above with any addition or exceptions noted below. <Lamin Carey - Last Filed: 03/07/18 11:00>
[2018-03-07] MEDS: Rivaroxaban 15 MG TAB PO SCH (09:39)
[2018-03-07] MEDS: Oxybutynin ER 5 MG TAB PO SCH (09:39)
[2018-03-07] MEDS: DULoxetine 60 MG CAP PO SCH (09:39)
[2018-03-07] MEDS: Metoprolol Tartrate 50 MG TAB PO SCH (09:40)
[2018-03-07] MEDS: Cefepime 1 GM in Sodium Chloride 0.9% 100 ML IVPB SCH (11:17)
[2018-03-07] MEDS: oxyCODONE 5 MG TAB PO PRN (11:46)
[2018-03-07 18:44] VITALS: BP 113/58; TEMP 98.6
== END 2018-03-07 17:45 | DRG 641 ==
LOC: ERS 21:09 → 2NO 23:50
PROVIDERS: ADMIT Family Medicine; ATTEND Family Medicine
DX: E87.1 Hypo-osmolality and hyponatremia (principal); N17.9 Acute kidney failure, unspecified; K50.90 Crohn's disease, unspecified, without complications; C79.51 Secondary malignant neoplasm of bone; K92.1 Melena; N39.0 Urinary tract infection, site not specified; I24.8 Other forms of acute ischemic heart disease; E87.3 Alkalosis; E86.0 Dehydration; I12.9 Hypertensive chronic kidney disease with stage 1 through stage 4 chronic kidney disease, or unspecified chronic kidney disease; R07.9 Chest pain, unspecified; B96.5 Pseudomonas (aeruginosa) (mallei) (pseudomallei) as the cause of diseases classified elsewhere; E83.42 Hypomagnesemia; E03.9 Hypothyroidism, unspecified; N18.3 Chronic kidney disease, stage 3 (moderate); Z66 Do not resuscitate; Z85.820 Personal history of malignant melanoma of skin; R74.8 Abnormal levels of other serum enzymes; G89.29 Other chronic pain; E87.6 Hypokalemia; Z51.5 Encounter for palliative care; D53.9 Nutritional anemia, unspecified; R60.9 Edema, unspecified; E88.09 Other disorders of plasma-protein metabolism, not elsewhere classified; I48.91 Unspecified atrial fibrillation; R32 Unspecified urinary incontinence; Z79.01 Long term (current) use of anticoagulants; Z79.891 Long term (current) use of opiate analgesic
CPT/HCPCS: 36415; 70450; 70553; 71275; 80048; 81003; 81015; 82274; 82550; 82553; 82570; 82607; 82728; 82746; 83540; 83550; 83605; 83630; 83735; 83880; 84145; 84443; 84484; 84540; 85025; 85060; 87040; 87077; 87086; 87186; 93005; 93970; 96360; 96361; A9579; G8978-GP-CM; G8979-GP-CL; G8987-GO-CM; G8988-GO-CK; J0692; J3480; J7050; J7500

== ENCOUNTER 2018-05-02 21:37 | Emergency (ER) | payer MEDICARE, OTHER ==
[2018-05-02] MEDS ORDERED: Metoprolol Tartrate 25 MG TAB ONE (21:59)
[2018-05-02] MEDS ORDERED: Adacel (T-DAP) 0.5 ML SYRINGE ONE (21:59)
[2018-05-02] MEDS ORDERED: Lidocaine 1% (PF) 30 ML VIAL ONE (22:10)
== END 2018-05-03 01:14 | disposition home or self-care (01) ==
LOC: ERS 21:37
DX: S81.811A Laceration without foreign body, right lower leg, initial encounter (principal); I48.91 Unspecified atrial fibrillation; I11.0 Hypertensive heart disease with heart failure; I50.9 Heart failure, unspecified; M19.90 Unspecified osteoarthritis, unspecified site; Z79.899 Other long term (current) drug therapy; W45.8XXA Other foreign body or object entering through skin, initial encounter
CPT/HCPCS: 12034; 90471; 90715; J2001

== ENCOUNTER 2018-06-09 09:21 | Outpatient (CLI) | payer MEDICARE ==
--- NOTE | 2018-06-09 12:50 | HP ---
HISTORY OF PRESENT ILLNESS: Ms. Lavonne Alvarado is a very pleasant 78-year-old, who presents to the [facility] for evaluation of a wound of the left lateral lower leg. The patient states that the wound began in February or March of 2018. She states that she is unsure as to how the wound began. She states that sutures may have been placed to approximate the wound edges when the wound was first noted. The patient resides at [facility]. She is not accompanied by a family or staff member, who is able to augment the history obtained today. PAST MEDICAL HISTORY: 1. Hypertension. 2. Urolithiasis. 3. Crohn ileitis. 4. Osteoarthritis. 5. Macular degeneration. 6. Skin carcinoma of hands and arms. 7. Chronic atrial fibrillation. 8. Hypothyroidism. 9. Diverticulosis. 10. Spinal stenosis. 11. Anemia. 12. Chronic kidney disease, stage 3. PAST SURGICAL HISTORY: 1. Left knee arthroscopy. 2. Bilateral cataract surgery. 3. Wide local excision of melanoma of right posterior medial calf. 4. Back surgery. 5. Left total knee arthroplasty. 6. Right knee surgery. 7. Right third finger amputation. MEDICATIONS: 1. Vitamin C. 2. Azathioprine. 3. Clobetasol propionate cream 0.05%. 4. Duloxetine. 5. Famotidine. 6. Fentanyl patch. 7. Glucosamine complex. 8. Levothyroxine. 9. Lisinopril. 10. Metoprolol. 11. Ocuvite. 12. Oxybutynin. 13. Potassium chloride. 14. Torsemide. 15. Vitamin D. 16. Vitamin E. 17. Xarelto. ALLERGIES: GABAPENTIN. SOCIAL HISTORY: Social history is significant for tobacco use of a few cigarettes per day for less than one year in the remote past. The patient denies any history of EtOH use. FAMILY HISTORY: Family history is significant for diabetes mellitus. The patient states that her mother was diagnosed with diabetes mellitus. Family history is also significant for coronary artery disease. The patient states that her father was diagnosed with coronary artery disease. PHYSICAL EXAMINATION: VITAL SIGNS: Temperature 98.2, pulse 93, and blood pressure 115/57. GENERAL: A 78-year-old female sitting on chair in examination room, in no acute distress. HEENT: Normocephalic and atraumatic. NECK: No nuchal rigidity. CHEST: Clear to auscultation. CV: Regular rate and rhythm. ABDOMEN: Soft. EXTREMITIES: A wound of the left lateral lower leg is present, which measures approximately 5.3 x 2.5 cm. A small amount of granulation tissue is visible within the wound margins. Necrotic and nonviable tissue present within the wound margins were debrided with an excisional full-thickness debridement with the use of a curette and scissors. No purulent drainage is associated with the wound. No maceration of the skin of the periwound is noted. A dorsalis pedis pulse and a posterior tibial pulse are both palpable on the left. No significant edema of the left foot or lower leg is present on exam today. ASSESSMENT AND PLAN: 1. Wound of left lateral lower leg as described above. Dressing changes of Medihoney, 4x4s, ABD, and Kerlix will be initiated today. These dressing changes are to be performed on a daily basis after cleansing and irrigation at [facility]. I will see Ms. Alvarado again in 2 weeks. The patient states she understands and is in agreement with the preceding treatment and plan. 2. Hypertension. 3. Urolithiasis. 4. Crohn ileitis. 5. Osteoarthritis. 6. Macular degeneration. 7. Skin carcinoma of hands and arms. 8. Chronic atrial fibrillation. 9. Hypothyroidism. 10. Diverticulosis. 11. Spinal stenosis. 12. Anemia. 13. Chronic kidney disease stage 3. Job ID: [id number]
[2018-06-09] MEDS ORDERED: Sodium Chloride 0.9% 15 ML NEB ONE (15:00)
[2018-06-09] MEDS ORDERED: Lidocaine 2% PF 100 mg/5 ml Syringe ONE (15:00)
== END 2018-06-09 09:22 | disposition home or self-care (01) ==
LOC: WCC 09:21
PROVIDERS: ATTEND Family Medicine
DX: S81.802D Unspecified open wound, left lower leg, subsequent encounter (principal); N20.9 Urinary calculus, unspecified; K52.89 Other specified noninfective gastroenteritis and colitis; M19.90 Unspecified osteoarthritis, unspecified site; H35.30 Unspecified macular degeneration; C44.609 Unspecified malignant neoplasm of skin of left upper limb, including shoulder; C44.602 Unspecified malignant neoplasm of skin of right upper limb, including shoulder; I48.2 Chronic atrial fibrillation; E03.9 Hypothyroidism, unspecified; K57.90 Diverticulosis of intestine, part unspecified, without perforation or abscess without bleeding; M48.00 Spinal stenosis, site unspecified; I12.9 Hypertensive chronic kidney disease with stage 1 through stage 4 chronic kidney disease, or unspecified chronic kidney disease; N18.3 Chronic kidney disease, stage 3 (moderate); D63.1 Anemia in chronic kidney disease
CPT/HCPCS: 11042; 97139; G0463; 99203; A4218; J2001

== ENCOUNTER 2018-06-12 23:23 | Observation (INO) | payer MEDICARE ==
[2018-06-13 00:14] LABS: #Eosinphils 0.1 thou/uL (0.0-0.7); #Lymphocytes 0.6 thou/uL (1.20-3.40); #Monocytes 0.6 thou/uL (0.11-0.59); #Neutrophils 6.3 thou/uL (1.40-6.50); %Basophils 0.4 % (0.0-1.0); %Eosinophils 1.6 % (0.0-10.0); %Lymphocytes 7.3 % (21.0-51.0); %Monocytes 8.2 % (0.0-10.0); %Neutrophils 82.4 % (42.0-75.0); Hemoglobin 11.4 g/dL (12.0-16.0); Mean Corpuscular HGB CONC 32.3 g/dL (32.0-36.0); Mean Corpuscular Hemoglobin 30.3 pg (27.0-31.0); Mean Corpuscular Volume 93.8 fL (78.0-98.0); Mean Platelet Volume 6.4 fL (7.4-10.4); Platelet Count 216 thou/uL (130-400); RBC Distribution Width 14.4 % (11.5-14.5); Red Blood Cell (RBC) Count 3.78 mill/uL (4.20-5.40); White Blood Cell (WBC) Count 7.6 thou/uL (4.8-10.8)
[2018-06-13 00:33] LABS: ALT (SGPT) 12 U/L (8-55); AST (SGOT) 15 U/L (5-34); Alkaline Phosphatase 96 U/L (40-150); Anion Gap 16 mmol/L (10-20); BUN (Urea Nitrogen) 40 mg/dL (9.8-20.1); Bilirubin, Total 0.6 mg/dL (0.2-1.2); CK (CPK) 13 U/L (29-168); Calc. Creatinine Clearance 0 mL/min (70-130); Calcium 9.2 mg/dL (7.8-10.44); Carbon Dioxide 27 mmol/L (23-31); Chloride 96 mmol/L (98-107); Estimated GFR-MDRD 31; Globulin 3.8 g/dL (2.4-3.5); Glucose 122 mg/dL (83-110); Lipase 4 U/L (8-78); Potassium 3.9 mmol/L (3.5-5.1); Protein, Total 6.8 g/dL (6.0-8.3); Sodium 135 mmol/L (136-145)
--- NOTE | 2018-06-13 00:59 | PDOC.FPRHP ---
- History of Present Illness Chief Complaint: Chest pain History of Present Illness: Ms. Alvarado presents for CP She reports this afternoon she was changing her shirt when she began to have pressure like chest pain, substernal and non resolving. no SOB, palpitations, syncope, or radiation. She said the pain did not get better and EMS was called, she was given nitro en route and her pain got better. She denies diaphoresis, fever, chills, abdominal upset, constipation or diarrhea. She has no history of CAD. She has a diagnosis of Afib that is rate controlled, and an echo in 2017 that had a normal EF. she is taking her medications as prescribed without side effect or difficulty ED Course: Nitro en route resolved CP CBC, CMP, CXR, BNP, Troponin, EKG, CK, Lipase - Allergies/Adverse Reactions Allergies Allergy/AdvReac Type Severity Reaction Status Date / Time gabapentin Allergy Verified 06/13/18 02:32 - Home Medications Medication Instructions Recorded Confirmed Type Ascorbic Acid [Vitamin C] 500 mg PO DAILY 03/16/17 06/13/18 History Cholecalciferol (Vitamin D3) 2,000 unit PO DAILY 03/16/17 06/13/18 History [Vitamin D] DULoxetine [Cymbalta] 60 mg PO DAILY 03/16/17 06/13/18 History Glucosamine/D3/Boswellia Veronica 1,500 mg PO DAILY 03/16/17 06/13/18 History [Glucosamine Complex] Levothyroxine Sodium 50 mcg PO DAILY 03/16/17 06/13/18 History Metoprolol Tartrate [Lopressor] 25 mg PO BID 03/16/17 06/13/18 History Oxybutynin Chloride [Oxybutynin 10 mg PO DAILY 03/16/17 06/13/18 History Chloride ER] Potassium Chloride 20 meq PO TID 03/16/17 06/13/18 History Rivaroxaban [Xarelto] 15 mg PO DAILY 03/16/17 06/13/18 History Vitamin E 1,000 unit PO DAILY 03/16/17 06/13/18 History azaTHIOprine [Imuran] 50 mg PO BID 03/16/17 06/13/18 History Acetaminophen 1 - 2 tab PO Q4H PRN 02/28/18 06/13/18 History Bisacodyl [Dulcolax] 10 mg [place] DAILY PRN 02/28/18 06/13/18 History Clobetasol [Temovate 0.05% Cream] 1 applic TOP BID 02/28/18 06/13/18 History Famotidine 20 mg PO DAILY 02/28/18 06/13/18 History Lactulose 10 GM/15ML Oral Isabelle 20 gm PO TID 02/28/18 06/13/18 History [Lactulose] Lisinopril [Zestril] 40 mg PO DAILY 02/28/18 06/13/18 History Loperamide HCl [Loperamide] 2 mg PO ASDIR PRN 02/28/18 06/13/18 History Magnesium Hydroxide [Milk Of 30 ml PO DAILY PRN 02/28/18 06/13/18 History Magnesium] Ondansetron [Zofran Odt] 4 mg PO Q6H PRN 02/28/18 06/13/18 History OxyCODONE IR [oxyCODONE HCl] 5 mg PO Q4HR PRN 02/28/18 06/13/18 History Polyethylene Glycol 3350 [Miralax] 17 gm PO DAILY 02/28/18 06/13/18 History Sennosides [Senna] 17.2 mg PO HS 02/28/18 06/13/18 History Silver Sulfadiazine 20 gm TP DAILY 02/28/18 06/13/18 History Torsemide [Demadex] 100 mg PO DAILY 02/28/18 06/13/18 History Vit A,C & E/Lutein/Minerals 1 tab PO DAILY 02/28/18 06/13/18 History [Ocuvite With Lutein] fentaNYL [Fentanyl] 12 mcg/hr TD Q3DAYS 02/28/18 06/13/18 History guaiFENesin [Guaifenesin] 200 mg PO Q4H PRN 02/28/18 06/13/18 History Bacitracin/Polymyxin B Sulfate 1 applic TOP BID 06/13/18 06/13/18 History [Polysporin Ointment] guaiFENesin/Dextromethorphan 10 ml PO Q6H PRN 06/13/18 06/13/18 History [Robitussin DM] - History PMHx:hypothyroid, metastatic melanoma, HTN, Crohns, spinal stenosis, urinary incontinence PSHx: L knee replacement, b/l cataracts, b/l leg "ablation" by Dr. Trevino for LE circulation, R 3rd finger amputation FHx:non-contributory Social:Presented from the [facility], seen by Dr. Liz there - Review of Systems General: denies: fever/chills, weight/appetite/sleep changes Eyes: denies: vision changes ENT: denies: rhinorrhea Respiratory: denies: cough, congestion, shortness of breath Cardiovascular: reports: chest pain, edema. denies: palpitation, orthopnea Gastrointestinal: denies: nausea, vomiting, diarrhea, constipation, abdominal pain Genitourinary: denies: incontinence, dysuria Skin: denies: rashes, lesions Musculoskeletal: denies: pain, tenderness Neurological: denies: numbness, syncope, weakness - Vital signs BP: 102/63 HR: 65 RR: 16 Tmax: 98.1 Pox: 98% on RA Wt: 79kg - Physical Exam Constitutional: NAD, awake, alert and oriented HEENT: normocephalic and atraumatic, grossly normal vision, grossly normal hearing Neck: supple, trachea midline Chest: no-tender to palpation, no lesions Heart: RRR, normal S1/S2, no murmurs/rubs/gallops, pulses present, other (edema present in b/l LE, reported at baseline) Lungs: CTAB, no respiratory distress, good air movement Abdomen: soft, no masses/distention, other (tender to palpation) Musculoskeletal: normal structure, normal tone Neurological: no focal deficit, CN II-XII intact Skin: no rash/lesions, good turgor Heme/Lymphatic: no unusual bruising or bleeding Psychiatric: normal mood and affect FMR H&P: Results - Labs Result Diagrams: 06/13/18 03:33 06/13/18 03:33 Lab results: WBC 7.6 thou/uL (4.8-10.8) 06/13/18 00:06 Hgb 11.4 g/dL (12.0-16.0) L 06/13/18 00:06 Hct 35.4 % (36.0-47.0) L 06/13/18 00:06 MCV 93.8 fL (78.0-98.0) 06/13/18 00:06 Plt Count 216 thou/uL (130-400) 06/13/18 00:06 Neutrophils % 82.4 % (42.0-75.0) H 06/13/18 00:06 Sodium 135 mmol/L (136-145) L 06/13/18 00:06 Potassium 3.9 mmol/L (3.5-5.1) 06/13/18 00:06 Chloride 96 mmol/L (98-107) L 06/13/18 00:06 Carbon Dioxide 27 mmol/L (23-31) 06/13/18 00:06 BUN 40 mg/dL (9.8-20.1) H 06/13/18 00:06 Creatinine 1.59 mg/dL (0.6-1.1) H 06/13/18 00:06 Glucose 122 mg/dL (83-110) H 06/13/18 00:06 Calcium 9.2 mg/dL (7.8-10.44) 06/13/18 00:06 Total Bilirubin 0.6 mg/dL (0.2-1.2) 06/13/18 00:06 AST 15 U/L (5-34) 06/13/18 00:06 ALT 12 U/L (8-55) 06/13/18 00:06 Alkaline Phosphatase 96 U/L (40-150) 06/13/18 00:06 Creatine Kinase 13 U/L (29-168) L 06/13/18 00:06 B-Natriuretic Peptide 234.1 pg/mL (0-100) H 06/13/18 00:06 Serum Total Protein 6.8 g/dL (6.0-8.3) 06/13/18 00:06 Albumin 3.0 g/dL (3.4-4.8) L 06/13/18 00:06 Lipase 4 U/L (8-78) L 06/13/18 00:06 FMR H&P: A/P - Problem List (1) MINE (acute kidney injury) Status: Acute Code(s): N17.9 - ACUTE KIDNEY FAILURE, UNSPECIFIED (2) Atrial fibrillation Status: Acute Code(s): I48.91 - UNSPECIFIED ATRIAL FIBRILLATION (3) Elevated brain natriuretic peptide (BNP) level Status: Acute Code(s): R79.89 - OTHER SPECIFIED ABNORMAL FINDINGS OF BLOOD CHEMISTRY (4) HTN (hypertension) Status: Acute Code(s): I10 - ESSENTIAL (PRIMARY) HYPERTENSION (5) Hypothyroid Status: Acute Code(s): E03.9 - HYPOTHYROIDISM, UNSPECIFIED (6) Incontinence in female Status: Acute Code(s): R32 - UNSPECIFIED URINARY INCONTINENCE - Plan atypical chest pain - EKG showing Afib, rate controlled, no ST changes, trop negx1 - continue to trend troponin - nitro for chest pain - monitor on telemetry Afib - aware, continue home meds - rate controlled, monitor on tele MINE - aware, continue to monitor - gentle IVF resuscitation, LR 100 ml/hr - monitor BMP Hypothyroid - aware, continue home meds HTN - aware, controlled. continue home meds Crohns - aware, well controlled, continue to monitor GERD - aware, continue home meds Urinary incontinence - aware, continue home meds code: full ppx: xarelto Dispo: observation on telemetry, DC with neg trop FMR H&P: Upper Level - Pertinent history 78F p/w chest pain beginning this afternoon. Described as substernal and sharp and intermittent in nature. It does not radiate. Denies SOB, syncope, palpitations, diaphoresis. EMS was called and gave nitro which resolved her chest pain. - Pertinent findings EKG: known a-fib with a ventricular rate of 88; no ST segment or T wave abnormalities CXR: possible vascular congestion H.4 (baseline) BUN/Cr: 40/1.6 trop: .02 BNP: 234 (baseline) Gen: alert; in no acute distress CV: irregularly irregular rhythm Pulm: CTA-B Abd: soft; non TTP; no distention - Plan Date/Time: 06/13/18 0057 I, Eduardo Batista, have evaluated this patient and agree with findings/plan as outlined by video editing intern resident. Pertinent changes/additions are listed here. Typical CP: admit for r/o ACS. Continue to monitor on tele. Morphine, nitro, and oxygen for angina. Trend troponins and repeat EKG if necessary. Patient not a good candidate for intervention. Will maximize medical therapy and consult Cardiology if cardiac enzymes trend upward. Heart score of 4 A-fib: known arrhythmia. Rate controlled currently. Continue home medications. MINE: modest increase in baseline creatinine. Gentle hydration with IVF. Monitor with daily labs Addendum - Attending - Attending Attestation Date/Time: 06/13/18 0721 I personally evaluated the patient and discussed the management with Dr. Batista and Dr. Mario I agree with the History, Examination, Assessment and Plan documented above with any addition or exceptions noted below. 78 yo female with history of metastatic melanoma, HF, HTN, hypothyroidism, Crohns Dz, and spinal stenosis presents for evaluation of chest pain. Patient with difficult time describing chest pain during my interview. Denies chest pain currently. Reportedly pain occurring with getting dressed. Substernal. None radiating. No associated symptoms. VS reivewed. Labs reviewed. Imaging reviewed. Agree with resident PE. NAD. 1. Chest pain: ASC ruled out. Negative CE. Negative tele. Negative EKG. Stress this AM to see if underlying nonobstructive CAD. 2. HTN: Borderline hypotension. Possible perfusion/demand related chest pain. Will adjust home BP med does. 3. hypothyroidism: Check TSH if not recently done. 4. MINE on CKD: Elevated Cr. Continue gently IVF and encourage PO intake. Mild dehydrated. But fine fluid balance due to hx to HF. Mildly elevated BNP. Monitor closely. 5. Multiple skin wounds: Wound care following. Will need outpatient care. Patient was very pleasant this morning without complaints. Stress later today. Monitor renal function and BP. Possible home later today pending testing and labs. [place]
[2018-06-13] MEDS ORDERED: Ondansetron ODT 4 MG TAB PO PRN (02:54)
[2018-06-13] MEDS ORDERED: Acetaminophen 325 MG TAB PO PRN (02:54)
[2018-06-13] MEDS ORDERED: Nitroglycerin 0.4 MG TAB (25 Tab Bottle) PO PRN (02:54)
[2018-06-13] MEDS ORDERED: Ondansetron PF 4 MG/2 ML Vial IVP PRN (02:54)
[2018-06-13 03:05] VITALS: BMI 34.5
[2018-06-13 03:40] LABS: #Eosinphils 0.1 thou/uL (0.0-0.7); #Lymphocytes 0.6 thou/uL (1.20-3.40); #Monocytes 0.6 thou/uL (0.11-0.59); #Neutrophils 5.4 thou/uL (1.40-6.50); %Basophils 0.2 % (0.0-1.0); %Eosinophils 1.1 % (0.0-10.0); %Lymphocytes 9.2 % (21.0-51.0); %Monocytes 8.6 % (0.0-10.0); %Neutrophils 80.9 % (42.0-75.0); Mean Corpuscular HGB CONC 32.8 g/dL (32.0-36.0); Mean Corpuscular Hemoglobin 30.5 pg (27.0-31.0); Mean Corpuscular Volume 93.1 fL (78.0-98.0); Mean Platelet Volume 6.3 fL (7.4-10.4); Platelet Count 200 thou/uL (130-400); RBC Distribution Width 14.5 % (11.5-14.5); Red Blood Cell (RBC) Count 3.59 mill/uL (4.20-5.40); White Blood Cell (WBC) Count 6.6 thou/uL (4.8-10.8)
[2018-06-13 03:57] LABS: Anion Gap 14 mmol/L (10-20); BUN (Urea Nitrogen) 41 mg/dL (9.8-20.1); Calc. Creatinine Clearance 45 mL/min (70-130); Calcium 9.1 mg/dL (7.8-10.44); Carbon Dioxide 27 mmol/L (23-31); Chloride 97 mmol/L (98-107); Estimated GFR-MDRD 33; Glucose 120 mg/dL (83-110); Potassium 3.2 mmol/L (3.5-5.1); Sodium 135 mmol/L (136-145)
[2018-06-13] MEDS ORDERED: Bisacodyl 10 MG SUPP PR PRN (07:11)
[2018-06-13] MEDS ORDERED: guaiFENesin/Dextromethorphan 10 ML UDCUP PO PRN (07:11)
[2018-06-13] MEDS ORDERED: Lactated Ringer's 500 ML IV SCH (07:15)
--- NOTE | 2018-06-13 07:50 | RAD ---
PORTABLE CHEST 1 VIEW: DATE: 06/12/2018. TIME: 11:59 p.m. HISTORY: Chest pain. FINDINGS: Comparison is made with the exam of 03/16/2017. The heart size is borderline. The aorta is tortuous. The lungs are well expanded without focal area s of consolidation, pneumothorax, jessica pulmonary edema, or pleural effusions. IMPRESSION: No acute process. POS: H
[2018-06-13] MEDS ORDERED: Metoprolol Tartrate 50 MG TAB PO SCH (09:00)
[2018-06-13] MEDS ORDERED: Metoprolol Tartrate 25 MG TAB PO SCH (09:00)
[2018-06-13] MEDS ORDERED: Non-Formulary Item 1 EACH (Rivaroxaban [Xarelto] 15 MG) PO SCH (09:00)
[2018-06-13] MEDS ORDERED: Polyethylene Glycol 3350 17 GM Packet PO SCH (09:00)
[2018-06-13] MEDS ORDERED: Famotidine 20 MG TAB PO SCH (09:00)
[2018-06-13] MEDS ORDERED: Non-Formulary Item 1 EACH (Potassium Chloride [Potassium Chloride] 20 MEQ) PO SCH (09:00)
[2018-06-13] MEDS ORDERED: DULoxetine 60 MG CAP PO SCH (09:00)
[2018-06-13] MEDS ORDERED: Silver Sulfadiazine 1% Cream 50 GM TUBE TP SCH (09:00)
[2018-06-13] MEDS ORDERED: Non-Formulary Item 1 EACH (Oxybutynin Chloride [Oxybutynin Chloride Er] 10 MG) PO SCH (09:00)
[2018-06-13] MEDS ORDERED: Levothyroxine Sodium 50 MCG TAB PO SCH (09:00)
[2018-06-13] MEDS ORDERED: Non-Formulary Item 1 EACH (Lactulose 10 Gm/15ml Oral Sol 20 GM) PO SCH (09:00)
[2018-06-13] MEDS ORDERED: Non-Formulary Item 1 EACH (Cholecalciferol (Vitamin D3) [Vitamin D] 2,000 UNIT) PO SCH (09:00)
[2018-06-13] MEDS ORDERED: Rivaroxaban 15 MG TAB PO SCH (09:00)
[2018-06-13] MEDS ORDERED: Potassium Chloride 20 MEQ TAB PO SCH ×4 (09:00→21:00)
[2018-06-13] MEDS ORDERED: Oxybutynin 5 MG TAB PO SCH (09:00)
[2018-06-13] MEDS ORDERED: azaTHIOprine 50 MG TAB PO SCH (09:00)
[2018-06-13] MEDS: Potassium Chloride 10 MEQ in Premix Bag 1 BAG IVPB SCH ×2 (10:03→12:22)
[2018-06-13] MEDS ORDERED: ADENOSINE 60 MG/20 ML VIAL ONE (10:40)
[2018-06-13] MEDS ORDERED: oxyCODONE 5 MG TAB PO PRN (14:57)
[2018-06-13 16:01] VITALS: TEMP 98.2
[2018-06-13 16:09] VITALS: BP 100/55
--- NOTE | 2018-06-13 16:32 | NM ---
MYOCARDIAL PERFUSION AND QUANTITATIVE GATED SPECT STUDY: HISTORY: Atypical chest pain. TECHNIQUE: The patient was stressed using 52.6 mg of adenosine, given IV. DOSE: Technetium 99m Cardiolite 28.6 millicuries for the stress portion exam, and 9 millicuries for the res ting portion of the exam. FINDINGS: Images demonstrate myocardial perfusion to be unremarkable. No evidence of a reversible defect is se en. No significant interval change is seen between stress and resting images. Ejection fraction chris sures 74%. POS: ZEINAB
[2018-06-13] MEDS ORDERED: Senokot 8.6 MG TAB PO SCH ×2 (21:00)
--- NOTE | 2018-06-18 17:16 | EKG ---
Test Reason : Blood Pressure : / mmHG Vent. Rate : 088 BPM Atrial Rate : 312 BPM P-R Int : 000 ms QRS Dur : 082 ms QT Int : 378 ms P-R-T Axes : 000 005 018 degrees QTc Int : 457 ms Atrial fibrillation with premature ventricular or aberrantly conducted complexes Nonspecific ST and T wave abnormality , probably digitalis effect Abnormal ECG Confirmed by DAVID MOSELEY, DANICA ([id number]), photographic editor DEIDRE RED ([id number]) on 06/18/2018 5:16:31 PM Referred By: Confirmed By:DANICA HERNANDEZ MD
== END 2018-06-13 19:45 ==
LOC: ERS 23:23 → 2SW 06-13 00:50
PROVIDERS: ADMIT Emergency Medicine; ATTEND Emergency Medicine
DX: R07.89 Other chest pain (principal); I48.91 Unspecified atrial fibrillation; I12.9 Hypertensive chronic kidney disease with stage 1 through stage 4 chronic kidney disease, or unspecified chronic kidney disease; N18.9 Chronic kidney disease, unspecified; N17.9 Acute kidney failure, unspecified; K50.90 Crohn's disease, unspecified, without complications; E03.9 Hypothyroidism, unspecified; R79.89 Other specified abnormal findings of blood chemistry; R32 Unspecified urinary incontinence; K21.9 Gastro-esophageal reflux disease without esophagitis; Z79.01 Long term (current) use of anticoagulants; Z79.899 Other long term (current) drug therapy; Z88.8 Allergy status to other drugs, medicaments and biological substances
CPT/HCPCS: 71045; 78452; 80048; 80053; 82550; 83690; 83880; 84484 ×2; 85025 ×2; 93005; 93017; 94760 ×2; 96361; 96365; 97139 ×2; 99285; A9500; G0378 ×2; 36415; J0153; J3480; J7120; J7500

== ENCOUNTER 2018-06-23 16:08 | Outpatient (CLI) | payer MEDICARE ==
--- NOTE | 2018-06-23 11:26 | PRG ---
DATE OF SERVICE: 06/23/2018 HISTORY: Ms. Lavonne Alvarado is a very pleasant 78-year-old, who presents to the Wound Center for evaluation of a wound of the left lateral lower leg. The patient previously stated that the wound began in February or March 2018. She stated that she was unsure as to how the wound began. She stated that sutures may have been placed to approximate the wound edges when the wound was first noted. After being seen in the Wound Center, dressing changes of Medihoney, 4x4s, an ABD, and Kerlix were initiated. Orders were transmitted to [facility] for dressing changes on a daily basis after cleansing and irrigation. PHYSICAL EXAMINATION: VITAL SIGNS: Temperature 97.6, pulse 84, respirations 19, and blood pressure 98/53. EXTREMITIES: A wound of the left lateral lower leg is present, which measures approximately 7.0 x 3.0 cm. Granulation tissue is present within the wound margins. Necrotic and nonviable tissue present within the wound margins was debrided with an excisional full-thickness debridement with the use of a curette and scissors. No purulent drainage is associated with the wound. No cellulitis of the left lower leg is appreciated. No maceration of the skin of the periwound is noted. Edema of the left foot and lower leg is present on exam today. ASSESSMENT AND PLAN: 1. Wound of left lateral lower leg as described above. Dressing changes of Medihoney, 4x4s, an ABD, and Kerlix will be continued on a daily basis or alternatively every other day after cleansing and irrigation at [facility]. I will see Ms. Alvarado again in 3 weeks. The patient states she is in agreement with the preceding treatment plan. 2. Hypertension. 3. Urolithiasis. 4. Crohn ileitis. 5. Osteoarthritis. 6. Macular degeneration. 7. Skin carcinoma of hands and arms. 8. Chronic atrial fibrillation. 9. Hypothyroidism. 10. Diverticulosis. 11. Spinal stenosis. 12. Anemia. 13. Chronic kidney disease, stage 3. Job ID: [id number]
[~2018-06-23 16:08] MED LIST changes: -ISOVUE-370 76%-LOCM 1 ML ONE; +Lidocaine 2% PF 100 mg/5 ml Syringe ONE; +Sodium Chloride 0.9% 15 ML NEB ONE
== END 2018-06-23 16:09 | disposition home or self-care (01) ==
LOC: WCC 16:08
PROVIDERS: ATTEND Family Medicine
DX: S81.802D Unspecified open wound, left lower leg, subsequent encounter (principal); N20.9 Urinary calculus, unspecified; K52.9 Noninfective gastroenteritis and colitis, unspecified; M19.90 Unspecified osteoarthritis, unspecified site; H35.30 Unspecified macular degeneration; C44.602 Unspecified malignant neoplasm of skin of right upper limb, including shoulder; C44.609 Unspecified malignant neoplasm of skin of left upper limb, including shoulder; I48.2 Chronic atrial fibrillation; E03.9 Hypothyroidism, unspecified; K57.90 Diverticulosis of intestine, part unspecified, without perforation or abscess without bleeding; M48.00 Spinal stenosis, site unspecified; I12.9 Hypertensive chronic kidney disease with stage 1 through stage 4 chronic kidney disease, or unspecified chronic kidney disease; N18.3 Chronic kidney disease, stage 3 (moderate); D63.1 Anemia in chronic kidney disease
CPT/HCPCS: A4218; J2001

== ENCOUNTER 2018-07-14 10:46 | Outpatient (CLI) | payer MEDICARE ==
--- NOTE | 2018-07-14 16:50 | PRG ---
DATE OF SERVICE: 07/14/2018 HISTORY: Ms. Lavonne Alvarado is a very pleasant 78-year-old, who presents to the Wound Center for evaluation of a wound of the left lateral lower leg. The patient previously stated that the wound began in February or March of 2018. She stated that she was unsure as to how the wound began. She stated that sutures may have been placed to approximate the wound edges when the wound was first noted. After being seen in the Wound Center, dressing changes of Medihoney, 4x4s, ABD, and Kerlix were initiated. Orders were transmitted to [facility] for dressing changes on a daily basis after cleansing and irrigation. The patient presents to clinic today with a wound VAC in place. PHYSICAL EXAMINATION: VITAL SIGNS: Temperature 97.7, pulse 86, respirations 16, blood pressure 105/54. EXTREMITIES: A wound of the left lateral lower leg is present which measures approximately 6.4 x 3.0 cm. The dimensions of the wound at the time of the patient's visit on 06/23/2018 were approximately 7.0 x 3.0 cm. Granulation tissue is present within the wound margins. Necrotic and nonviable tissue present within the wound margins was debrided with an excisional full-thickness debridement with the use of a curette and scissors. No purulent drainage is associated with the wound. No macerations of the skin of the periwound is noted. ASSESSMENT AND PLAN: 1. Wound of left lateral lower leg as described above. Negative pressure therapy will be continued. I will discuss the treatment plan with the staff at [facility]. I will see Ms. Alvarado again in 2 weeks. 2. Hypertension. 3. Urolithiasis. 4. Crohn ileitis. 5. Osteoarthritis. 6. Macular degeneration. 7. Skin carcinoma of hands and arms. 8. Chronic atrial fibrillation. 9. Hypothyroidism. 10. Diverticulosis. 11. Spinal stenosis. 12. Anemia. 13. Chronic kidney disease stage 3. Job ID: [id number]
[2018-07-14] MEDS ORDERED: Lidocaine 2% 11 ML SYR ONE (19:58)
[2018-07-14] MEDS ORDERED: Sodium Chloride 0.9% 15 ML NEB ONE (19:58)
== END 2018-07-14 10:47 | disposition home or self-care (01) ==
LOC: WCC 10:46
PROVIDERS: ATTEND Family Medicine
DX: T81.89XD Other complications of procedures, not elsewhere classified, subsequent encounter (principal); I12.9 Hypertensive chronic kidney disease with stage 1 through stage 4 chronic kidney disease, or unspecified chronic kidney disease; N18.3 Chronic kidney disease, stage 3 (moderate); D63.1 Anemia in chronic kidney disease; N20.9 Urinary calculus, unspecified; K50.00 Crohn's disease of small intestine without complications; H35.30 Unspecified macular degeneration; M19.90 Unspecified osteoarthritis, unspecified site; I48.2 Chronic atrial fibrillation; E03.9 Hypothyroidism, unspecified; K57.90 Diverticulosis of intestine, part unspecified, without perforation or abscess without bleeding; C44.602 Unspecified malignant neoplasm of skin of right upper limb, including shoulder; C44.609 Unspecified malignant neoplasm of skin of left upper limb, including shoulder
CPT/HCPCS: 11042; A4218